=== PATIENT | male | born 1930 | race Caucasian/White ===

== ENCOUNTER 2016-03-10 11:10 | Emergency (ER) | payer OTHER ==
[~2016-03-10] VITALS: Ht 175.3 cm; Wt 91.0 kg
[~2016-03-10 11:10] MED LIST: ALBU1AER INH; AMLO5TAB96 PO; ENAL20TA81 PO; FOLI1TAB PO; LOPE2 PO; LORT5TAB PO; LORTA5 PO; METH2.5 IM; METH750T2 PO; PERC5TAB12 PO; REST30CA PO; SYMB160A INH; TAB-TAB PO
[2016-03-10 11:14] VITALS: BP 149/75; PULSE 75; RESP 16; TEMP 97.9; O2SAT 95
[2016-03-10] MEDS ORDERED: SODIUM CHLORIDE 0.9% FLUSH 5 ML FLUSH IVF PRN (11:30)
[2016-03-10] MEDS ORDERED: methylPREDNISolone SOD SUCC 125 MG/2 ML VIAL IVP ONE (11:30)
--- NOTE | 2016-03-10 11:33 | PD ---
HPI Chief Complaint: Respiratory Distress Time Seen by Provider: 11:20 Travel History International Travel<30 days: No Contact w/Intl Traveler<30days: No Traveled to known affect area: No History of Present Illness HPI This 85-year-old male is complaining of cough and shortness of breath. He has a history of emphysema. He was a smoker in the past but has stopped in 1979. He is on Symbicort. He also has quite severe arthritis and is on [employer] arthritis study. He's been coughing up some thick phlegm in his been wheezing for about 4 days. He is not aware of fever. He is not having chest pain. He has had swelling of his legs off and on for the last couple of months. 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) Oral Surgery: Yes (t and a ) Pacemaker: No Other Surgery: Yes Social History Alcohol Use: Yes (occ) Tobacco Use: No Substance Use: No Allergies-Medications (Allergen,Severity, Reaction): Coded Allergies: Arava (Verified Allergy, Mild, RASH, 03/10/16) Reported Meds & Prescriptions Reported Meds & Active Scripts Active Percocet 5-325 mg (Oxycodone/Acetaminophen) Oxycodone 5/325 Acetaminophen Tab 1 Tab PO Q6H PRN Methocarbamol 750 Mg Tab 750 Mg PO QID [place] 5-325 mg (Hydrocodone-Acetaminophen 5-325 mg) 5 mg/325 mg Tab 1 Tab PO Q6H PRN Lortab 5/500 (Acetaminophen/Hydrocodone Bitart) 5 Mg/500 Mg Tab 0.5-1 Tab PO Q6HPRN NEEDED FOR PAIN Reported Xeljanz (Tofacitinib) 5 Mg Tab 5 Mg PO BID Amlodipine (Amlodipine Besylate) 5 Mg Tab 5 Mg PO DAILY Enalapril (Enalapril Maleate) 20 Mg Tab 20 Mg PO DAILY Symbicort Inh (Budesonide/Formoterol Fumarate) 80-4.5 Mcg/Act Aero 1 Puff INH DAILY PRN Symbicort (Budesonide/Formoterol Fumarate) 160 Mcg/4.5 Mcg Aer 2 Puff INH BID * SHAKE WELL BEFORE USE * Proair Hfa (Albuterol Sulfate) 8.5 Gm Aero 2 Puff INH Q4-6H UNKNOWN DOSE Restoril 30 mg (Temazepam) 30 Mg Cap 1 Cap PO HS Imodium2 Mg 2 Mg Cap 2 Mg PO PRN Rheumatrex (Methotrexate) 2.5 Mg Tab 2.5 Mg IM WEEKLY Folate (Folic Acid) 1 Mg Tab 1 Mg PO DAILY Multivitamin (Multivitamins) 1 Tab Tab 1 Tab PO DAILY Norvasc (Amlodipine Besylate) 5 Mg Tab 5 Mg PO DAILY Vasotec (Enalapril Maleate) 20 Mg Tab 20 Mg PO DAILY Review of Systems General / Constitutional: No: Fever, Chills Eyes: No: Diploplia, Blurred Vision HENT: No: Headaches Cardiovascular: No: Chest Pain or Discomfort Respiratory: Positive: Cough, Shortness of Breath, Wheezing Gastrointestinal: No: Vomiting, Diarrhea Genitourinary: No: Urgency, Frequency Musculoskeletal: No: Myalgias Skin: No Rash Neurologic: No: Weakness Physical Exam Narrative GENERAL: Elderly male in mild respiratory distress. SKIN: Warm and dry. HEAD: Atraumatic. Normocephalic. EYES: Pupils equal and round. No scleral icterus. No injection or drainage. ENT: No nasal bleeding or discharge. Mucous membranes pink and moist. NECK: Trachea midline. No JVD. CARDIOVASCULAR: Regular rate and rhythm. No murmur appreciated. RESPIRATORY: Mild accessory muscle use. Bilateral expiratory wheezes are present GASTROINTESTINAL: Abdomen soft, non-tender, nondistended. Hepatic and splenic margins not palpable. MUSCULOSKELETAL: No obvious deformities. No clubbing. No cyanosis. Bilateral pedal edema NEUROLOGICAL: Awake and alert. No obvious cranial nerve deficits. Motor grossly within normal limits. Normal speech. PSYCHIATRIC: Appropriate mood and affect; insight and judgment normal. Data Data Last Documented VS Vital Signs Date Time Temp Pulse Resp B/P Pulse Ox O2 Delivery O2 Flow Rate FiO2 03/10/16 13:16 94 18 140/57 93 Room Air 03/10/16 11:14 97.9 Orders Complete Blood Count With Diff (03/10/16 11:27) Comprehensive Metabolic Panel (03/10/16 11:27) B-Type Natriuretic Peptide (03/10/16 11:27) Troponin I (03/10/16 11:27) Urinalysis - C+S If Indicated (03/10/16 11:27) Blood Culture (03/10/16 11:27) Iv Access Insert/Monitor (03/10/16 11:27) Electrocardiogram (03/10/16 11:27) Ecg Monitoring (03/10/16 11:27) Oximetry (03/10/16 11:27) Oxygen Administration (03/10/16 11:27) Chest, Single Ap (03/10/16 11:27) Sodium Chloride 0.9% Flush (Ns Flush) (03/10/16 11:30) Methylprednisolone So Succ Inj (Solumedr (03/10/16 11:30) Albuterol-Ipratropium Neb (Duoneb Neb) (03/10/16 11:30) Lactic Acid Sepsis Protocol (03/10/16 11:27) Labs Laboratory Tests Test 03/10/16 03/10/16 11:50 11:55 White Blood Count 6.5 TH/MM3 Red Blood Count 4.39 MIL/MM3 Hemoglobin 13.0 GM/DL Hematocrit 40.3 % Mean Corpuscular Volume 91.9 FL Mean Corpuscular Hemoglobin 29.6 PG Mean Corpuscular Hemoglobin 32.2 % Concent Red Cell Distribution Width 14.1 % Platelet Count 210 TH/MM3 Mean Platelet Volume 7.9 FL Neutrophils (%) (Auto) 57.0 % Lymphocytes (%) (Auto) 21.0 % Monocytes (%) (Auto) 19.1 % Eosinophils (%) (Auto) 2.6 % Basophils (%) (Auto) 0.3 % Neutrophils # (Auto) 3.7 TH/MM3 Lymphocytes # (Auto) 1.4 TH/MM3 Monocytes # (Auto) 1.2 TH/MM3 Eosinophils # (Auto) 0.2 TH/MM3 Basophils # (Auto) 0.0 TH/MM3 CBC Comment DIFF FINAL Differential Comment Sodium Level 142 MEQ/L Potassium Level 4.0 MEQ/L Chloride Level 102 MEQ/L Carbon Dioxide Level 33.6 MEQ/L Anion Gap 6 MEQ/L Blood Urea Nitrogen 13 MG/DL Creatinine 1.10 MG/DL Estimat Glomerular Filtration 64 ML/MIN Rate Random Glucose 74 MG/DL Calcium Level 9.0 MG/DL Total Bilirubin 0.3 MG/DL Aspartate Amino Transf 16 U/L (AST/SGOT) Alanine Aminotransferase 18 U/L (ALT/SGPT) Alkaline Phosphatase 70 U/L Troponin I LESS THAN 0.02 NG/ML B-Type Natriuretic Peptide 33 PG/ML Total Protein 7.6 GM/DL Albumin 3.4 GM/DL Lactic Acid Level 1.2 mmol/L [facility] Medical Decision Making Medical Screen Exam Complete: Yes Emergency Medical Condition: Yes Medical Record Reviewed: Yes Differential Diagnosis Differential includes COPD exacerbation, pneumonia, CHF Narrative Course Chest x-ray is read as negative. Patient was given Solu-Medrol and 3 nebulizer treatments with improvement. He feels better after these treatments. Repeat exam does show some residual rhonchi and occasional wheeze. He'll be released with prescription for prednisone and amoxicillin Diagnosis Primary Impression: COPD exacerbation Scripts Prednisone (48) 10 mg tab Dose Pack 10 Mg [id number] Mg PO DIRECTED #1 DSPK Ref 0 Prov:Angel Weldon MD 03/10/16 Amoxicillin 500 Mg [id number] Mg PO TID #30 TAB Ref 0 Prov:Angel Weldon MD 03/10/16 Disposition: 01 DISCHARGE HOME Condition: Stable Angel Weldon MD Mar 10, 2016 11:33
[2016-03-10 11:37] VITALS: RESP 18; O2SAT 93
[2016-03-10] MEDS ORDERED: TOFA5TAB PO (11:44)
[2016-03-10] MEDS ORDERED: AMLO5TAB2 PO (11:44)
[2016-03-10] MEDS ORDERED: ENAL20TA PO (11:44)
[2016-03-10] MEDS ORDERED: SYMB80AE INH (11:44)
[2016-03-10] MEDS: RESP: ALBUTEROL 2.5 MG/IPRATROPIUM 0.5 MG NEB (SCH) INH ×2 (11:50→11:51)
[2016-03-10 12:04] VITALS: BP 156/67; PULSE 70; RESP 16; O2SAT 95
[2016-03-10 12:14] LABS: AUTOMATED NEUTROPHIL # 3.7 TH/MM3 (1.8-7.7); BASOPHIL % 0.3 % (0.0-2.0); EOSINOPHIL # 0.2 TH/MM3 (0-0.4); EOSINOPHIL % 2.6 % (0.0-4.0); HEMATOCRIT 40.3 % (39.0-51.0); HEMO FLAGS DIFF FINAL; LYMPHOCYTE # 1.4 TH/MM3 (1.0-4.8); MEAN CELL VOLUME 91.9 FL (80.0-100.0); MEAN CORPUSCULAR HEMOGLOBIN 29.6 PG (27.0-34.0); MEAN CORPUSCULAR HGB CONC 32.2 % (32.0-36.0); MONO % 19.1 % (0.0-8.0); PLATELET COUNT 210 TH/MM3 (150-450); RED BLOOD COUNT 4.39 MIL/MM3 (4.50-5.90); RED CELL DISTRIBUTION WIDTH 14.1 % (11.6-17.2); WHITE BLOOD COUNT 6.5 TH/MM3 (4.0-11.0)
[2016-03-10 12:21] LABS: CHLORIDE 102 MEQ/L (98-107); SODIUM (NA) 142 MEQ/L (136-145)
[2016-03-10 12:25] LABS: ANION GAP 6 MEQ/L (5-15); BICARBONATE 33.6 MEQ/L (21.0-32.0); BLOOD UREA NITROGEN 13 MG/DL (7-18)
[2016-03-10 12:28] LABS: AST (GOT) 16 U/L (15-37); GLOMERULAR FILTRATION RATE 64 ML/MIN (>89)
[2016-03-10 12:30] LABS: TOTAL BILIRUBIN ADULT 0.3 MG/DL (0.2-1.0)
[2016-03-10 12:31] LABS: ALKALINE PHOSPHATASE 70 U/L (45-117)
--- NOTE | 2016-03-10 12:34 | RADHPO ---
EXAM DATE/TIME: 03/10/2016 11:45 [facility] COMPARISON: No previous studies available for comparison. INDICATIONS : Short of breath and cough MEDICAL HISTORY : Chronic obstructive pulmonary disease. Asthma SURGICAL HISTORY : None. ENCOUNTER: Initial ACUITY: 4 - 6 days PAIN SCORE: 0/10 LOCATION: Bilateral chest FINDINGS: A single view of the chest demonstrates minimal basilar atelectasis. No effusion. No pneumothorax. Ri ght sided shunt tubing present. Postoperative left shoulder joint replacement. CONCLUSION: 1. Minimal basilar atelectasis. No effusion or pneumothorax. Lam Astorga MD on March 10, 2016 at 12:32 Board Certified Radiologist. This report was verified electronically.
[2016-03-10 12:37] LABS: ALT (GPT) 18 U/L (12-78)
[2016-03-10 13:16] VITALS: BP 140/57; PULSE 94; RESP 18; O2SAT 93
[2016-03-10] MEDS ORDERED: AMOX500T PO (13:35)
[2016-03-10] MEDS ORDERED: PRED10PA2 PO (13:35)
[2016-03-10] MEDS ORDERED: PRED20 PO (13:36)
--- NOTE | 2016-03-10 22:22 | EKG ---
Date Performed: 03/10/2016 Time Performed: 11:31:12 PTAGE: 85 years EKG: Sinus rhythm Nonspecific ST and T wave abnormalities Borderline ECG PREVIOUS TRACING : 11/23/2009 08.33 Since previous tracing, no significant change noted DOCTOR: Reed Carpenter Interpretating Date/Time 03/10/2016 22:20:49
== END 2016-03-10 14:00 | disposition home or self-care (01) ==
LOC: PHED 11:10
DX: J44.1 Chronic obstructive pulmonary disease with (acute) exacerbation (principal); R05 Cough; I10 Essential (primary) hypertension; R94.31 Abnormal electrocardiogram [ECG] [EKG]; J43.9 Emphysema, unspecified; M19.90 Unspecified osteoarthritis, unspecified site
CPT/HCPCS: 71010; 80053; 83605; 83880; 84484; 85025; 87040; 93005; 94640; 94664; 96374; 99285; J2930

== ENCOUNTER 2016-09-11 19:34 | Emergency (ER) | payer OTHER ==
[~2016-09-11] VITALS: Ht 170.2 cm; Wt 88.8 kg
[~2016-09-11 19:34] MED LIST changes: +AMLO5TAB2 PO; +AMOX500T PO; +ENAL20TA PO; +PRED20 PO; +SYMB80AE INH; +TOFA5TAB PO
[2016-09-11 19:49] VITALS: BP 152/91; PULSE 97; RESP 16; TEMP 98.5; O2SAT 93
[2016-09-11] MEDS ORDERED: METH2.5T PO (20:12)
[2016-09-11] MEDS ORDERED: HYDR-3516 PO (20:12)
[2016-09-11] MEDS ORDERED: MULTTAB67 PO (20:12)
[2016-09-11] MEDS ORDERED: FOLI400T PO (20:13)
--- NOTE | 2016-09-11 20:27 | PD ---
HPI Chief Complaint: Fall Time Seen by Provider: 20:14 Travel History International Travel<30 days: No Contact w/Intl Traveler<30days: No Traveled to known affect area: No History of Present Illness HPI 86-year-old male complains of laceration the back of the head. Patient tripped and fell this evening. Patient denies loss of consciousness. Patient states that he had burning pain in the back of the head from the laceration. Patient denies any visual change. Patient denies any neck pain. Patient denies any chest pain or shortness of breath. Patient denies abdominal pain. Patient denies any focal weakness or numbness of extremity. Patient denies any extremity injury. Patient's up-to-date with TD booster. Patient status post excision surgery for skin cancer to the scalp this morning. Patient states he has some burning pain around the incision area. Patient was on methotrexate until a week ago. Patient was on clindamycin last week and now taking doxycycline starting this morning after surgery. 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) Oral Surgery: Yes (t and a ) Pacemaker: No Other Surgery: Yes Social History Alcohol Use: Yes (Occasionally) Tobacco Use: No (quit 1979) Substance Use: No Allergies-Medications (Allergen,Severity, Reaction): Coded Allergies: Arava (Verified Allergy, Mild, RASH, 09/11/16) Reported Meds & Prescriptions Reported Meds & Active Scripts Active Reported Folic Acid 400 Mcg Tab 1 Tab PO DAILY Multiple Vitamin 1 Tab 1 Tab PO DAILY Methotrexate 2.5 Mg Tab 2.5 Mg PO Q7D Hydrocodone-Acetaminophen 5-325 mg Tab 1 Tab PO Q6H PRN Xeljanz (Tofacitinib) 5 Mg Tab 5 Mg PO BID Amlodipine (Amlodipine Besylate) 5 Mg Tab 5 Mg PO DAILY Enalapril (Enalapril Maleate) 20 Mg Tab 20 Mg PO DAILY Symbicort Inh (Budesonide/Formoterol Fumarate) 80-4.5 Mcg/Act Aero 1 Puff INH DAILY PRN Review of Systems General / Constitutional: No: Fever Eyes: No: Visual changes HENT: No: Headaches Cardiovascular: No: Chest Pain or Discomfort Respiratory: No: Shortness of Breath Gastrointestinal: No: Abdominal Pain Genitourinary: No: Dysuria Musculoskeletal: No: Pain Skin: No Rash Neurologic: No: Weakness Psychiatric: No: Depression Endocrine: No: Polydipsia Hematologic/Lymphatic: No: Easy Bruising Physical Exam Narrative GENERAL: Well-nourished, well-developed patient. SKIN: Focused skin assessment warm/dry. Patient has jaundice of the face head and neck. HEAD: Normocephalic. EYES: Bilateral scleral icterus. No injection or drainage. NECK: Supple, trachea midline. No JVD or lymphadenopathy. CARDIOVASCULAR: Regular rate and rhythm without murmurs, gallops, or rubs. RESPIRATORY: Breath sounds equal bilaterally. No accessory muscle use. GASTROINTESTINAL: Abdomen soft, non-tender, nondistended. MUSCULOSKELETAL: No cyanosis, or edema. BACK: Nontender without obvious deformity. No CVA tenderness. Neurologic exam: Patient's awake and alert oriented 3. No obvious focal neurological deficit. Data Data Last Documented VS Vital Signs Date Time Temp Pulse Resp B/P Pulse Ox O2 Delivery O2 Flow Rate FiO2 09/11/16 20:30 94 Room Air 09/11/16 19:49 98.5 97 16 152/91 Orders Complete Blood Count With Diff (09/11/16 20:22) Comprehensive Metabolic Panel (09/11/16 20:22) Prothrombin Time / Inr (Pt) (09/11/16 20:22) Act Partial Throm Time (Ptt) (09/11/16 20:22) Ct Brain W/O Iv Contrast(Rout) (09/11/16 20:22) Iv Access Insert/Monitor (09/11/16 20:22) Ecg Monitoring (09/11/16 20:22) Oximetry (09/11/16 20:22) Lidocai-Epi 1%-1:100,000 Inj (Xylocaine- (09/11/16 20:30) Labs Laboratory Tests Test 09/11/16 20:30 White Blood Count 7.8 TH/MM3 Red Blood Count 4.33 MIL/MM3 Hemoglobin 13.0 GM/DL Hematocrit 40.0 % Mean Corpuscular Volume 92.4 FL Mean Corpuscular Hemoglobin 30.1 PG Mean Corpuscular Hemoglobin 32.6 % Concent Red Cell Distribution Width 15.7 % Platelet Count 232 TH/MM3 Mean Platelet Volume 7.4 FL Neutrophils (%) (Auto) 55.1 % Lymphocytes (%) (Auto) 25.9 % Monocytes (%) (Auto) 15.7 % Eosinophils (%) (Auto) 2.9 % Basophils (%) (Auto) 0.4 % Neutrophils # (Auto) 4.4 TH/MM3 Lymphocytes # (Auto) 2.0 TH/MM3 Monocytes # (Auto) 1.2 TH/MM3 Eosinophils # (Auto) 0.2 TH/MM3 Basophils # (Auto) 0.0 TH/MM3 CBC Comment DIFF FINAL Differential Comment Prothrombin Time 11.2 SEC Prothromb Time International 1.0 RATIO Ratio Activated Partial 28.0 SEC Thromboplast Time Sodium Level 144 MEQ/L Potassium Level 4.5 MEQ/L Chloride Level 106 MEQ/L Carbon Dioxide Level 33.2 MEQ/L Anion Gap 5 MEQ/L Blood Urea Nitrogen 26 MG/DL Creatinine 1.20 MG/DL Estimat Glomerular Filtration 58 ML/MIN Rate Random Glucose 113 MG/DL Calcium Level 9.5 MG/DL Total Bilirubin 0.3 MG/DL Aspartate Amino Transf 21 U/L (AST/SGOT) Alanine Aminotransferase 20 U/L (ALT/SGPT) Alkaline Phosphatase 73 U/L Total Protein 7.4 GM/DL Albumin 3.3 GM/DL MDM Medical Decision Making Medical Screen Exam Complete: Yes Emergency Medical Condition: Yes Interpretation(s) Last Impressions Head CT 09/11/162021 Signed Impressions: Service Date/Time: Sunday, September 11, 2016 20:49 - CONCLUSION: Mildly prominent ventricles with shunt in place. I have no prior studies for comparison. There is no skull fracture. Francisco J Hoskins MD FACR 21:28 PM. CBC within normal limit. CMP within normal limit. Bicarbonate 33.2. BUN 26. Differential Diagnosis Differential diagnosis including scalp laceration, skull fracture, intracranial hemorrhage. Narrative Course 86-year-old male with head injury. Examination also shows patient has jaundice of the skin on the face and head and neck. Patient status post scalp excision surgery for skin cancer. Procedures Procedure Narrative LACERATION LOCATION: Scalp LENGTH: 3 cm NUMBER OF STITCHES/STU: 3 REPAIR: The area of the laceration was prepped with Betadine and sterilely draped. The laceration was infiltrated with 1% lidocaine with epinephrine. The wound was copiously irrigated and explored without evidence of foreign body , tendon injury or neurovascular injury. The wound was closed using stu. This was a single layer repair. A sterile dressing was applied. The patient was advised to keep the dressing clean and dry. Patient tolerated the procedure well. Diagnosis Primary Impression: Scalp laceration Qualified Code: S01.01XA - Scalp laceration, initial encounter Additional Impression: Closed head injury Qualified Code: S09.90XA - Closed head injury, initial encounter Patient Instructions: General Instructions Additional Instructions: Wound care daily. Head trauma instructions given. Follow-up with personal physician or return in 7 days for staple removal. Med/Other Pt SpecificInfo: No Change to Meds Disposition: 01 DISCHARGE HOME Condition: Stable Steven Perez MD Sep 11, 2016 20:27
[2016-09-11 20:30] VITALS: BP 170/78; PULSE 88; RESP 18; O2SAT 94
[2016-09-11] MEDS ORDERED: LIDOCAINE 1%/EPINEPHrine 1:100,000 SOLN 20 ML VIAL INFIL ONE (20:30)
[2016-09-11 20:37] LABS: AUTOMATED NEUTROPHIL # 4.4 TH/MM3 (1.8-7.7); BASOPHIL % 0.4 % (0.0-2.0); EOSINOPHIL # 0.2 TH/MM3 (0-0.4); EOSINOPHIL % 2.9 % (0.0-4.0); HEMO FLAGS DIFF FINAL; LYMPH % 25.9 % (9.0-44.0); MEAN CELL VOLUME 92.4 FL (80.0-100.0); MEAN CORPUSCULAR HEMOGLOBIN 30.1 PG (27.0-34.0); MEAN CORPUSCULAR HGB CONC 32.6 % (32.0-36.0); MONO % 15.7 % (0.0-8.0); NEUT % 55.1 % (16.0-70.0); PLATELET COUNT 232 TH/MM3 (150-450); RED BLOOD COUNT 4.33 MIL/MM3 (4.50-5.90); RED CELL DISTRIBUTION WIDTH 15.7 % (11.6-17.2); WHITE BLOOD COUNT 7.8 TH/MM3 (4.0-11.0)
[2016-09-11 20:45] LABS: CHLORIDE 106 MEQ/L (98-107); POTASSIUM 4.5 MEQ/L (3.5-5.1); SODIUM (NA) 144 MEQ/L (136-145)
[2016-09-11 20:49] LABS: ANION GAP 5 MEQ/L (5-15); BICARBONATE 33.2 MEQ/L (21.0-32.0); BLOOD UREA NITROGEN 26 MG/DL (7-18)
[2016-09-11 20:52] LABS: ALT (GPT) 20 U/L (12-78); AST (GOT) 21 U/L (15-37); GLOMERULAR FILTRATION RATE 58 ML/MIN (>89)
[2016-09-11 20:54] LABS: TOTAL BILIRUBIN ADULT 0.3 MG/DL (0.2-1.0)
[2016-09-11 20:55] LABS: ALKALINE PHOSPHATASE 73 U/L (45-117)
[2016-09-11 21:00] VITALS: BP 151/77; PULSE 86; RESP 18; O2SAT 94
--- NOTE | 2016-09-11 21:17 | RADRPT ---
EXAM DATE/TIME: 09/11/2016 20:49 [facility] COMPARISON: No previous studies available for comparison. INDICATIONS : Trauma. Fall. Occipital laceration. RADIATION DOSE: 61.50 CTDIvol (mGy) MEDICAL HISTORY : Hypertension. Emphysema. hydrocephalus. SURGICAL HISTORY : Cranial shunt. ENCOUNTER: Initial ACUITY: 1 day PAIN SCALE: 9/10 LOCATION: Right occipital TECHNIQUE: Multiple contiguous axial images were obtained of the head. Using automated exposure control and adj ustment of the mA and/or kV according to patient size, radiation dose was kept as low as reasonably a chievable to obtain optimal diagnostic quality images. DICOM format image data is available electro nically for review and comparison. FINDINGS: CEREBRUM: The ventricles are mildly prominent with shunt in place. No evidence of midline shift, mass lesion, hemorrhage or acute infarction. No extra-axial fluid collections are seen. POSTERIOR FOSSA: The cerebellum and brainstem are intact. The 4th ventricle is midline. The cerebellopontine angle i s unremarkable. EXTRACRANIAL: The visualized portion of the orbits is intact. SKULL: The calvaria is intact. No evidence of skull fracture. CONCLUSION: Mildly prominent ventricles with shunt in place. I have no prior studies for comparison. There is n o skull fracture. Francisco J Hoskins MD FACR on September 11, 2016 at 21:15 Board Certified Radiologist. This report was verified electronically.
[2016-09-11 21:39] LABS: PROTHROMBIN TIME - PATIENT 11.2 SEC (9.8-11.6)
[2016-09-11 22:05] VITALS: BP 140/82
== END 2016-09-11 22:05 | disposition home or self-care (01) ==
LOC: PHED 19:34
DX: S01.01XA Laceration without foreign body of scalp, initial encounter (principal); S09.90XA Unspecified injury of head, initial encounter; R17 Unspecified jaundice; I10 Essential (primary) hypertension; Z98.890 Other specified postprocedural states; Z87.39 Personal history of other diseases of the musculoskeletal system and connective tissue; Z87.09 Personal history of other diseases of the respiratory system; W01.0XXA Fall on same level from slipping, tripping and stumbling without subsequent striking against object, initial encounter
CPT/HCPCS: 12002; 70450; 80053; 85025; 85610; 85730

== ENCOUNTER → 2016-10-06 | Day surgery (SDC) | payer OTHER ==
[~2016-10-06] MED LIST changes: -ALBU1AER INH; -AMLO5TAB96 PO; -AMOX500T PO; -ENAL20TA81 PO; -FOLI1TAB PO; +FOLI400T PO; +HYDR-3516 PO; +LACTATED RINGER'S 1000 ML INJ 1,000 ML ONE; -LOPE2 PO; -LORT5TAB PO; -LORTA5 PO; -METH2.5 IM; +METH2.5T PO; -METH750T2 PO; +MULTTAB67 PO; -PERC5TAB12 PO; -PRED20 PO; -REST30CA PO; -SYMB160A INH; -TAB-TAB PO; +ceFAZolin 2 GM PREMIX 50 ML ONE
== END | disposition home or self-care (01) ==
LOC: ESDC 06:07
PROVIDERS: ATTEND Orthopaedic Surgery Sports Medicine
DX: M19.011 Primary osteoarthritis, right shoulder (principal)
CPT/HCPCS: J0690; J7120

== ENCOUNTER → 2016-11-30 | Outpatient (CLI) | payer OTHER ==
[~2016-11-30] MED LIST changes: -LACTATED RINGER'S 1000 ML INJ 1,000 ML ONE; -ceFAZolin 2 GM PREMIX 50 ML ONE
[2016-11-30 14:23] LABS: BLOOD GAS BASE EXCESS 0.3 mmol/L (-2-2); BLOOD GAS CARBOXYHEMOGLOBIN 1.7 % (0-4); BLOOD GAS HCO3 24 mmol/L (22-26); BLOOD GAS O2 HGB SATURATION 92 % (90-100); BLOOD GAS OXYGEN CONTENT 16.4 Vol % (12.0-20.0); BLOOD GAS PCO2 37 mmHg (38-42); BLOOD GAS PO2 75 mmHg (61-120); BLOOD GAS TOTAL HGB 12.6 G/DL (12.0-16.0); CRITICAL VALUE NO; DRAW SITE RT RADIAL; FIO2 21 %; NUMBER OF ARTERIAL PUNCTURES 1; STAT NO; TEMP CORR TO 98.6; ULNAR PULSE PRESENT
--- NOTE | 2016-12-01 09:30 | RSPPFT ---
DATE OF PROCEDURE: 11/30/16 COMMENTS: Spirometry with FVC of 2.6 at 85% of predicted, FEV1 of 1.2 at 52%, FEV1/FVC ratio is decreased. Flow is decreased at FEF 25, FEF 50, FEF 75 and FEF 25-75. There is a mild response after acutely inhaled bronchodilator treatment. Lung volumes show residual volume is normal. TLC is normal. Diffusion capacity is decreased. Flow volume loop indicates an obstructive pattern. Room air arterial blood gases show pH of 7.43, PCO2 of 37, PO2 of 75, BiCarb of 24 and O2 Saturation at 92%. 6-minute walk test shows no de-saturation. IMPRESSION: 1. Moderately severe obstructive lung disease. 2. Mild response to bronchodilator treatment. 3. Lung volumes are normal. 4. Diffusion capacity is decreased. 5. Blood gases show normal oxygenation. 6. 6-minute show no de-saturation.
== END ==
LOC: HRSP 12:48
PROVIDERS: ATTEND Specialist
DX: J44.9 Chronic obstructive pulmonary disease, unspecified (principal)
CPT/HCPCS: 36600; 82805; 94060; 94620; 94726; 94729

== ENCOUNTER 2017-01-08 15:21 | Emergency (ER) | payer OTHER ==
[~2017-01-08] VITALS: Ht 168.9 cm; Wt 90.6 kg
[2017-01-08 15:50] VITALS: BP 137/90; PULSE 96; RESP 16; TEMP 98; O2SAT 92
[2017-01-08 16:14] VITALS: RESP 16; O2SAT 97
[2017-01-08] MEDS ORDERED: ONDANSETRON HCL 4 MG/2 ML VIAL IVP ONE (16:15)
[2017-01-08] MEDS ORDERED: SODIUM CHLORIDE 0.9% FLUSH 10 ML FLUSH IVF PRN (16:15)
[2017-01-08] MEDS ORDERED: DICYCLOMINE HCL 10 MG CAP PO ONE (16:15)
[2017-01-08] MEDS ORDERED: MORPHINE SULFATE 8 MG/ML INJ IV PUSH ONE (16:15)
[2017-01-08] MEDS ORDERED: PANTOPRAZOLE SODIUM 40 MG VIAL IVP ONE (16:15)
[2017-01-08 16:18] VITALS: BP 150/63; PULSE 91; RESP 16; O2SAT 97
--- NOTE | 2017-01-08 16:18 | PD ---
HPI Chief Complaint: GI Complaint Time Seen by Provider: 16:02 Travel History International Travel<30 days: No Contact w/Intl Traveler<30days: No Traveled to known affect area: No History of Present Illness HPI The patient is a 86-year-old male who presents emergency department for lower abdominal pain and bright red blood to dark red blood in stool. The patient states his symptoms developed yesterday with lower abdominal pain that is described as sharp and cramping. The patient then noticed she had dark red blood in his stools as well as when he would . The patient states she has had multiple episodes of loose to watery diarrhea associated with the blood in the stool. He denies any recent international travel or history of colitis/ diverticulitis. The patient states his last colonoscopy was 3 years ago, but cannot recall the name of the airveyor operator. He denies taking any anti- anticoagulants. Symptoms are moderate, there are no current alleviating or exacerbating factors. He denies any nausea, vomiting, or upper abdominal pain. He denies any hematuria. Patient does have a history of rheumatoid arthritis for which she takes methotrexate and another rheumatoid arthritis medication. He denies taking any nonsteroidals on a daily basis. The patient's primary physician is Dr. Ahn. [facility] Past Medical History Arthritis: Yes (RA) Cancer: No Cardiovascular Problems: No COPD: Yes (Emphysema) Diabetes: No Diminished Hearing: No Glaucoma: No Hepatitis: No Hiatal Hernia: No Hypertension: Yes Medical other: Yes (NEEDS SURGERY ON LEFT SHOULDER. ,CHRONIC LOW BACK PAIN) Respiratory: Yes Thyroid Disease: No Tetanus Vaccination: < 5 Years Past Surgical History Cardiac Surgery: No Endocrine Surgery: No Genitourinary Surgery: Yes (penile implant) Neurologic Surgery: Yes (cranial shunt due hydrocephalus) Oral Surgery: Yes (t and a ) Pacemaker: No Other Surgery: Yes Social History Alcohol Use: Yes (Occasionally) Tobacco Use: No (quit 1979) Substance Use: No Allergies-Medications (Allergen,Severity, Reaction): Coded Allergies: leflunomide (Unverified Allergy, Mild, RASH, 01/08/17) Reported Meds & Prescriptions Reported Meds & Active Scripts Active Reported Folic Acid 400 Mcg Tab 1 Tab PO DAILY Multiple Vitamin 1 Tab 1 Tab PO DAILY Methotrexate 2.5 Mg Tab 2.5 Mg PO Q7D Hydrocodone-Acetaminophen 5-325 mg Tab 1 Tab PO Q6H PRN Xeljanz (Tofacitinib) 5 Mg Tab 5 Mg PO BID Amlodipine (Amlodipine Besylate) 5 Mg Tab 5 Mg PO DAILY Enalapril (Enalapril Maleate) 20 Mg Tab 20 Mg PO DAILY Symbicort Inh (Budesonide/Formoterol Fumarate) 80-4.5 Mcg/Act Aero 1 Puff INH DAILY PRN Review of Systems Except as stated in HPI: all other systems reviewed are Neg General / Constitutional: No: Fever Cardiovascular: No: Chest Pain or Discomfort Respiratory: No: Shortness of Breath Gastrointestinal: Positive: Abdominal Pain, Hematochezia, Changes in Bowel Habits, No: Nausea, Vomiting, Diarrhea Genitourinary: Positive: Pelvic Pain, No: Dysuria, Hematuria Musculoskeletal: Positive: Arthralgias (history of rheumatoid arthritis) Neurologic: No: Weakness, Dizziness Physical Exam Narrative GENERAL: Awake, alert, pleasant 86-year-old male who appears his stated age and is in no acute respiratory distress. SKIN: Focused skin assessment warm/dry. HEAD: Atraumatic. Normocephalic. EYES: Pupils equal and round. No scleral icterus. No injection or drainage. ENT: No nasal bleeding or discharge. Upper dentures noted. NECK: Trachea midline. No JVD. CARDIOVASCULAR: Regular rate and rhythm. No murmur appreciated. Heart rate in the 80s. RESPIRATORY: No accessory muscle use. Clear to auscultation. Breath sounds equal bilaterally. GASTROINTESTINAL: Abdomen soft, mild bilateral lower abdominal tenderness. No guarding or rigidity. Rectal: Some dried red blood around the anal area. Digital exam reveals bright red blood that is grossly guaiac positive. MUSCULOSKELETAL: No obvious deformities. No clubbing. No cyanosis. No edema. NEUROLOGICAL: Awake and alert. No obvious cranial nerve deficits. Motor grossly within normal limits. Normal speech. PSYCHIATRIC: Appropriate mood and affect; insight and judgment normal. Data Data Last Documented VS Vital Signs Date Time Temp Pulse Resp B/P (MAP) Pulse Ox O2 Delivery O2 Flow Rate FiO2 01/08/17 16:18 91 16 150/63 (92) 97 Room Air 01/08/17 15:50 98.0 Orders Orders Urinalysis - C+S If Indicated (01/08/17 15:44) Complete Blood Count With Diff (01/08/17 16:10) Comprehensive Metabolic Panel (01/08/17 16:10) Lipase (01/08/17 16:10) Prothrombin Time / Inr (Pt) (01/08/17 16:10) Type And Screen (01/08/17 16:10) Ecg Monitoring (01/08/17 16:10) Iv Access Insert/Monitor (01/08/17 16:10) Oximetry (01/08/17 16:10) Ondansetron Inj (Zofran Inj) (01/08/17 16:15) Pantoprazole Inj (Protonix Inj) (01/08/17 16:15) Sodium Chlor 0.9% 1000 Ml Inj (Ns 1000 M (01/08/17 16:10) Sodium Chloride 0.9% Flush (Ns Flush) (01/08/17 16:15) Lactic Acid (01/08/17 16:10) Ct Abd/Pel W/O Iv Contrast (01/08/17 ) Dicyclomine (Bentyl) (01/08/17 16:15) Morphine Inj (Morphine Inj) (01/08/17 16:15) Ciprofloxacin (Cipro) (01/08/17 18:00) Metronidazole 500 Mg Inj (Flagyl 500 Mg (01/08/17 18:00) Labs Laboratory Tests Test 01/08/17 16:20 White Blood Count 11.1 TH/MM3 Red Blood Count 4.20 MIL/MM3 Hemoglobin 12.1 GM/DL Hematocrit 37.4 % Mean Corpuscular Volume 89.1 FL Mean Corpuscular Hemoglobin 28.9 PG Mean Corpuscular Hemoglobin Concent 32.4 % Red Cell Distribution Width 17.0 % Platelet Count 250 TH/MM3 Mean Platelet Volume 8.0 FL Neutrophils (%) (Auto) 70.9 % Lymphocytes (%) (Auto) 14.1 % Monocytes (%) (Auto) 12.5 % Eosinophils (%) (Auto) 2.3 % Basophils (%) (Auto) 0.2 % Neutrophils # (Auto) 7.8 TH/MM3 Lymphocytes # (Auto) 1.6 TH/MM3 Monocytes # (Auto) 1.4 TH/MM3 Eosinophils # (Auto) 0.3 TH/MM3 Basophils # (Auto) 0.0 TH/MM3 CBC Comment DIFF FINAL Differential Comment Prothrombin Time 11.4 SEC Prothromb Time International Ratio 1.0 RATIO Urine Color YELLOW Urine Turbidity CLEAR Urine pH 6.0 Urine Specific [place] 1.021 Urine Protein TRACE mg/dL Urine Glucose (UA) NEG mg/dL Urine Ketones NEG mg/dL Urine Occult Blood NEG Urine Nitrite NEG Urine Bilirubin NEG Urine Leukocyte Esterase NEG Urine RBC 0-3 /hpf Urine WBC 6-8 /hpf Urine Squamous Epithelial Cells 0-5 /hpf Microscopic Urinalysis Comment CULT NOT INDICATED Blood Urea Nitrogen 26 MG/DL Creatinine 1.10 MG/DL Random Glucose 96 MG/DL Total Protein 7.6 GM/DL Albumin 3.2 GM/DL Calcium Level 9.1 MG/DL Alkaline Phosphatase 69 U/L Aspartate Amino Transf (AST/SGOT) 29 U/L Alanine Aminotransferase (ALT/SGPT) 34 U/L Total Bilirubin 0.4 MG/DL Sodium Level 139 MEQ/L Potassium Level 4.2 MEQ/L Chloride Level 105 MEQ/L Carbon Dioxide Level 30.1 MEQ/L Anion Gap 4 MEQ/L Estimat Glomerular Filtration Rate 64 ML/MIN Lactic Acid Level 0.9 mmol/L Lipase 83 U/L [facility] Medical Decision Making Medical Screen Exam Complete: Yes Emergency Medical Condition: Yes Medical Record Reviewed: Yes Interpretation(s) Last Impressions Abdomen/Pelvis CT 01/08/17 0000 Signed Impressions: Service Date/Time: Sunday, January 08, 2017 16:51 - CONCLUSION: 1. Mild bowel wall thickening mid sigmoid colon within the pelvis, nonspecific 2. Marked vascular calcifications 3. Left renal cyst 4. 1.4 cm probable complex right renal cyst. Followup by ultrasound or CT 6 months is suggested. Francisco J Hoskins MD FACR Laboratory Tests Test 01/08/17 16:20 White Blood Count 11.1 TH/MM3 Red Blood Count 4.20 MIL/MM3 Hemoglobin 12.1 GM/DL Hematocrit 37.4 % Mean Corpuscular Volume 89.1 FL Mean Corpuscular Hemoglobin 28.9 PG Mean Corpuscular Hemoglobin Concent 32.4 % Red Cell Distribution Width 17.0 % Platelet Count 250 TH/MM3 Mean Platelet Volume 8.0 FL Neutrophils (%) (Auto) 70.9 % Lymphocytes (%) (Auto) 14.1 % Monocytes (%) (Auto) 12.5 % Eosinophils (%) (Auto) 2.3 % Basophils (%) (Auto) 0.2 % Neutrophils # (Auto) 7.8 TH/MM3 Lymphocytes # (Auto) 1.6 TH/MM3 Monocytes # (Auto) 1.4 TH/MM3 Eosinophils # (Auto) 0.3 TH/MM3 Basophils # (Auto) 0.0 TH/MM3 CBC Comment DIFF FINAL Differential Comment Prothrombin Time 11.4 SEC Prothromb Time International Ratio 1.0 RATIO Urine Color YELLOW Urine Turbidity CLEAR Urine pH 6.0 Urine Specific [place] 1.021 Urine Protein TRACE mg/dL Urine Glucose (UA) NEG mg/dL Urine Ketones NEG mg/dL Urine Occult Blood NEG Urine Nitrite NEG Urine Bilirubin NEG Urine Leukocyte Esterase NEG Urine RBC 0-3 /hpf Urine WBC 6-8 /hpf Urine Squamous Epithelial Cells 0-5 /hpf Microscopic Urinalysis Comment CULT NOT INDICATED Blood Urea Nitrogen 26 MG/DL Creatinine 1.10 MG/DL Random Glucose 96 MG/DL Total Protein 7.6 GM/DL Albumin 3.2 GM/DL Calcium Level 9.1 MG/DL Alkaline Phosphatase 69 U/L Aspartate Amino Transf (AST/SGOT) 29 U/L Alanine Aminotransferase (ALT/SGPT) 34 U/L Total Bilirubin 0.4 MG/DL Sodium Level 139 MEQ/L Potassium Level 4.2 MEQ/L Chloride Level 105 MEQ/L Carbon Dioxide Level 30.1 MEQ/L Anion Gap 4 MEQ/L Estimat Glomerular Filtration Rate 64 ML/MIN Lactic Acid Level 0.9 mmol/L Lipase 83 U/L Differential Diagnosis Differential diagnosis includes mesenteric ischemia, colitis, diverticulosis, internal hemorrhoids, diverticulitis, enteritis, GI bleed, lower GI bleed, AV malformation, coagulopathy. Narrative Course IV was established, labs are drawn and sent, and the patient was placed on cardiac telemetry monitoring and continuous pulse oximetry monitoring. The patient was administered Protonix, morphine, Bentyl, Zofran, and IV fluids. Type and screen was sent to lab. Noncontrast CT of the abdomen and pelvis was ordered. The patient's white count is low 0.1. Hemoglobin is 12.1. Lactic acid is normal. CT reveals bowel wall thickening of the sigmoid colon, nonspecific. I suspect colitis with diarrhea with a small amount of hematochezia. The patient will be placed on Cipro, Flagyl, and [place] as needed for pain. He is advised to follow-up with his primary physician and may benefit from outpatient gastroenterology evaluation if symptoms persist for outpatient colonoscopy. The patient agrees and understands. He will be discharged home on Cipro and Flagyl. HemaPrompt Point of Care Internal Pos. & Neg. Controls: Passed Fecal Specimen Occult Blood: Positive Diagnosis Primary Impression: Colitis Additional Impression: Hematochezia Patient Instructions: General Instructions Additional Instructions: Medications as directed. Follow-up with your primary physician. Please provide the patient a copy of his CT results and lab results at discharge. Return if symptoms worsen or progress. Follow-up with gastroenterology on an outpatient basis. Med/Other Pt SpecificInfo: Prescription(s) given Scripts Hydrocodone-Acetaminophen ([place]) 5-325 mg Tab 1 TAB PO Q6H Y for PAIN, #12 TAB 0 Refills Prov: Dieudonne Anton MD 01/08/17 Metronidazole (Flagyl) 500 Mg Tab 500 MG PO BID for Infection for 7 Days, #14 TAB 0 Refills Prov: Dieudonne Anton MD 01/08/17 Ciprofloxacin (Cipro) 500 Mg Tab 500 MG PO BID for Infection for 7 Days, #14 TAB 0 Refills Prov: Dieudonne Anton MD 01/08/17 Disposition: 01 DISCHARGE HOME Condition: Stable Dieudonne Anton MD Jan 08, 2017 16:18
[2017-01-08 16:33] LABS: BLOOD, URINE NEG (NEG); GLUCOSE,URINE NEG (NEG); KETONE, URINE NEG (NEG); NITRITE,URINE NEG (NEG)
[2017-01-08] MEDS: SODIUM CHLOR 0.9% 1000 ML INJ 1,000 ML IV SCH ×2 (16:35→19:38)
[2017-01-08 16:37] LABS: URINE COLOR YELLOW (YELLW/STRAW)
[2017-01-08 16:38] LABS: COMMENT (UR) CULT NOT INDICATED; CULTURE IF INDICATED CULT NOT INDICATED; RBC, URINE 0-3 /hpf (0-3); SQUAMOUS EPITHELIAL CELL URINE 0-5 /hpf (0-5)
[2017-01-08 16:48] LABS: CHLORIDE 105 MEQ/L (98-107); POTASSIUM 4.2 MEQ/L (3.5-5.1); SODIUM (NA) 139 MEQ/L (136-145)
[2017-01-08 16:51] LABS: PROTHROMBIN TIME - PATIENT 11.4 SEC (9.8-11.6)
[2017-01-08 16:52] LABS: ANION GAP 4 MEQ/L (5-15); BICARBONATE 30.1 MEQ/L (21.0-32.0); BLOOD UREA NITROGEN 26 MG/DL (7-18)
[2017-01-08 16:55] LABS: ALT (GPT) 34 U/L (12-78); AST (GOT) 29 U/L (15-37); GLOMERULAR FILTRATION RATE 64 ML/MIN (>89)
[2017-01-08 16:57] LABS: TOTAL BILIRUBIN ADULT 0.4 MG/DL (0.2-1.0)
[2017-01-08 16:58] LABS: ALKALINE PHOSPHATASE 69 U/L (45-117)
[2017-01-08 17:00] LABS: AUTOMATED NEUTROPHIL # 7.8 TH/MM3 (1.8-7.7); BASOPHIL % 0.2 % (0.0-2.0); EOSINOPHIL # 0.3 TH/MM3 (0-0.4); EOSINOPHIL % 2.3 % (0.0-4.0); HEMATOCRIT 37.4 % (39.0-51.0); HEMO FLAGS DIFF FINAL; LYMPH % 14.1 % (9.0-44.0); LYMPHOCYTE # 1.6 TH/MM3 (1.0-4.8); MEAN CELL VOLUME 89.1 FL (80.0-100.0); MEAN CORPUSCULAR HEMOGLOBIN 28.9 PG (27.0-34.0); MEAN CORPUSCULAR HGB CONC 32.4 % (32.0-36.0); MONO % 12.5 % (0.0-8.0); NEUT % 70.9 % (16.0-70.0); PLATELET COUNT 250 TH/MM3 (150-450); WHITE BLOOD COUNT 11.1 TH/MM3 (4.0-11.0)
--- NOTE | 2017-01-08 17:46 | RADRPT ---
EXAM DATE/TIME: 01/08/2017 16:51 [facility] COMPARISON: No previous studies available for comparison. INDICATIONS : Lower abdominal pain with blood in stool. ORAL CONTRAST: No oral contrast ingested. RADIATION DOSE: 14.54 CTDIvol (mGy) MEDICAL HISTORY : Hypertension. Hydrocephalus. SURGICAL HISTORY : Penile implant. Cranial shunt. Orthopedic surgery. ENCOUNTER: Initial ACUITY: 1 day PAIN SCALE: 4/10 LOCATION: lower quadrant TECHNIQUE: Volumetric scanning of the abdomen and pelvis was performed. Using automated exposure control and ad justment of the mA and/or kV according to patient size, radiation dose was kept as low as reasonably achievable to obtain optimal diagnostic quality images. DICOM format image data is available electro nically for review and comparison. FINDINGS: Moderate hyperinflation is evident with mild emphysematous changes. Minimal peribronchial thickening . 5 mm nodule left base. Moderate coronary calcifications Small shrunken liver Spleen and pancreas unremarkable Review of it appear normal Small bilateral renal cyst, largest on the left measuring 3.8 cm. Well-circumscribed 1.4 cm nodule right kidney there is high density probably cyst but deserves follow up. There is limits. No adenopathy Region of the cecum and terminal unremarkable Extensive vascular calcifications are evident. The patient has penile implant as well as instructor bridge shunt There is mild bowel wall thickening sigmoid colon mid pelvis, nonspecific. Pelvic contents are otherwise unremarkable Review of bone windows reveals only degenerative changes. Previous lumbar surgery is noted. CONCLUSION: 1. Mild bowel wall thickening mid sigmoid colon within the pelvis, nonspecific 2. Marked vascular calcifications 3. Left renal cyst 4. 1.4 cm probable complex right renal cyst. Followup by ultrasound or CT 6 months is suggested. Francisco J Hoskins MD FACR on January 08, 2017 at 17:39 Board Certified Radiologist. This report was verified electronically.
[2017-01-08] MEDS ORDERED: metroNIDAZOLE 500 MG INJ 100 ML IV ONE (18:00)
[2017-01-08] MEDS ORDERED: CIPROFLOXACIN 500 MG TAB PO ONE (18:00)
[2017-01-08] MEDS ORDERED: METR-1 PO (18:19)
[2017-01-08] MEDS ORDERED: NORC5TAB PO (18:19)
[2017-01-08] MEDS ORDERED: CIPR-9 PO (18:19)
[2017-01-08 19:28] VITALS: BP 125/77; PULSE 128; RESP 18; O2SAT 94
[2017-01-08] MEDS ORDERED: METOPROLOL TARTRATE 5 MG/5 ML VIAL IV PUSH ONE (19:30)
[2017-01-08] MEDS ORDERED: METO25TA3 PO (19:30)
[2017-01-08 20:08] VITALS: BP 108/69; PULSE 95; RESP 18; O2SAT 94
--- NOTE | 2017-01-09 18:55 | EKG ---
Date Performed: 01/08/2017 Time Performed: 19:38:29 PTAGE: 86 years EKG: ATRIAL FIBRILLATION WITH RAPID VENTRICULAR RESPONSE NONSPECIFIC T-WAVE ABNORMALITY WHEN COM PARED TO PRIOR EKG PATIENT IS NOW IN ATRIAL FIBRILLATION WITH RAPID VENTRICULAR RATE. ABNORMAL RHYTH M ECG PREVIOUS TRACING : 03/10/2016 11.31 DOCTOR: Perla Sarmiento Interpretating Date/Time 01/09/2017 18:54:07
== END 2017-01-08 20:13 | disposition home or self-care (01) ==
LOC: PHED 15:21
DX: K52.9 Noninfective gastroenteritis and colitis, unspecified (principal); K92.1 Melena; I48.91 Unspecified atrial fibrillation; N28.1 Cyst of kidney, acquired; I10 Essential (primary) hypertension; J44.9 Chronic obstructive pulmonary disease, unspecified; M06.9 Rheumatoid arthritis, unspecified; Z79.899 Other long term (current) drug therapy
CPT/HCPCS: 74176; 80053; 81001; 83605; 83690; 85025; 85610; 86850; 86900; 86901; 93005; 96361; 96365; 96375; 99285; C9113; J2270; J2405; J7030

== ENCOUNTER 2017-11-27 09:50 | Observation (INO) ==
[2017-11-27] MEDS ORDERED: Naloxone Inj 0.4 MG/ML Vial IV.PUSH ONE (10:17)
[2017-11-27] MEDS ORDERED: Sod Chloride 0.9% Inj 1,000 ML IV.CONT ONE (10:30)
--- NOTE | 2017-11-27 11:03 | ED ---
HPI General Chief Complaint: Altered Mental Status Stated Complaint: weakness Time Seen by Provider: 11/27/17 10:02 History of Present Illness HPI narrative: This is a an 87-year-old male with a history of COPD, hypertension, rheumatoid arthritis, who presents today with lethargy and decreased mental status. The patient is status post penile prosthesis removal yesterday by Dr. Axel Apple with [facility]. Patient went home yesterday around 730. When he arrived he was unsteady on his gait however more alert than he was this morning when he woke up. states that he was barely awake and not as responsive as he normally is. She therefore called her daughter and they brought him here. Related Data Home Medications Medication Instructions Recorded Confirmed albuterol sulfate [Ventolin HFA] 1 puff INHALATION Q6H PRN 11/27/17 11/27/17 amlodipine 5 mg PO DAILY 11/27/17 11/27/17 budesonide-formoterol [Symbicort] 2 puff INHALATION BID 11/27/17 11/27/17 enalapril maleate 20 mg PO DAILY 11/27/17 11/27/17 folic acid 1 mg PO DAILY 11/27/17 11/27/17 ipratropium-albuterol 3 ml INHALATION QID 11/27/17 11/27/17 methotrexate sodium 7.5 mg PO WEEKLY 11/27/17 11/27/17 metoprolol tartrate 25 mg PO BID 11/27/17 11/27/17 prednisone 5 mg PO BID 11/27/17 11/27/17 Allergies Allergy/AdvReac Type Severity Reaction Status Date / Time leflunomide Allergy Mild RASH Verified 11/27/17 10:00 Review of Systems ROS: all other systems reviewed are negative Constitutional Reports system reviewed and no additional complaints, except as docu Eyes Denies dry eyes and Reports other ENT Reports system reviewed and no additional complaints, except as docu Cardiovascular Reports system reviewed and no additional complaints, except as docu Respiratory Reports system reviewed and no additional complaints, except as docu Gastrointestinal Denies abdominal pain, Denies nausea and Denies vomiting Genitourinary Denies hematuria, Denies flank pain and Reports other (Recent penile implant removal. Yesterday.) Musculoskeletal Denies back pain and Reports muscle weakness Neurologic Reports confusion, Reports vertigo, Reports weakness (Generalized) and Reports other (Lethargy) PMFSH Medical History Medical History Afib (Acute) Emphysema of lung (Acute) HTN (hypertension) (Acute) Rheumatoid arthritis (Acute) Surgical History Surgical History History of penile implant (Acute) History of rotator cuff surgery (Acute) Social History Social History Substance History: No History of Abuse Second Hand Smoke Exposure: No Smoking Status: Former smoker How Often Do You Have a Drink Containing Alcohol: 2 to 3 times a week Recent Travel in [facility] within the Last 8 Weeks: No Recent Out of Country Travel within the Last 8 Weeks: No Immunization History Tetanus Immunization: Unsure Hx Influenza Vaccine This Season: Yes Exam Narrative Exam Narrative: GENERAL: Well-developed well-nourished male who appears lethargic and sleepy. SKIN: Focused skin assessment warm/dry. HEAD: Atraumatic. Normocephalic. EYES: Pupils equal and 1 mm. No scleral icterus. No injection or drainage. ENT: No nasal bleeding or discharge. Mucous membranes pink and moist. NECK: Trachea midline. No JVD. CARDIOVASCULAR: Regular rate and rhythm. No murmur appreciated. RESPIRATORY: No accessory muscle use. Clear to auscultation. Breath sounds equal bilaterally. GASTROINTESTINAL: Abdomen soft, non-tender, nondistended. Hepatic and splenic margins not palpable. MUSCULOSKELETAL: No obvious deformities. No clubbing. No cyanosis. No edema. GENITOURINARY: Circumcised. Testes descended bilaterally without evidence of rotation. No obvious urethral discharge. There is a Hutchinson catheter in his penis. There is no erythema or cellulitis noted. There is postsurgical bandages on the suprapubic and scrotal area. NEUROLOGICAL: Awake and lethargic. The patient falls asleep mid sentence. No obvious cranial nerve deficits. Motor grossly within normal limits. Course Initial Documented Vital Signs Temperature 98.8 F 11/27/17 10:00 Pulse Rate 93 H 11/27/17 10:00 Respiratory Rate 29 H 11/27/17 10:00 Blood Pressure 144/60 H 11/27/17 10:00 Pulse Oximetry 89 L 11/27/17 10:00 Last Documented Vital Signs Temperature 98.8 F 11/27/17 10:00 Pulse Rate 93 H 11/27/17 10:00 Respiratory Rate 29 H 11/27/17 10:00 Blood Pressure 144/60 H 11/27/17 10:00 Pulse Oximetry 99 09/25/18 11:01 Medical Decision Making MDM Narrative Medical decision making narrative: 87-year-old male status post penile prosthesis removal yesterday, presents here with altered mental status and lethargy. Patient appears to be lethargic however is arousable to discussion and stimuli. White count is elevated at above 13,000. Patient also has acute on chronic kidney injury. Patient is noted to have a UTI. He has been started on Rocephin and IV fluids. [facility] who agrees with the admission. Medical Screen Exam Complete: Yes Emergency Medical Condition: Yes Differential Diagnosis Differential Diagnosis: Sepsis versus overmedication versus metabolic derangement Lab Data Result diagrams: 11/27/17 10:45 11/27/17 10:45 Lab Results 11/27/17 11/27/17 11/27/17 Range/Units 10:45 10:45 10:45 WBC 13.1 H (4.0-11.0) th/mm3 RBC 4.18 L (4.50-5.90) mil/mm3 Hgb 13.2 (13.0-17.0) gm/dL Hct 42.0 (39.0-51.0) % MCV 100.6 H (80.0-100.0) fL MCH 31.6 (27.0-34.0) pg MCHC 31.4 L (32.0-36.0) % RDW 15.7 (11.6-17.2) % Plt Count 225 (150-450) th/mm3 MPV 9.2 (7.0-11.0) fL Neut % (Auto) 74.9 H (16.0-70.0) % Lymph % (Auto) 10.0 (9.0-44.0) % [place] % (Auto) 14.7 H (0.0-8.0) % Eos % (Auto) 0.3 (0.0-4.0) % Baso % (Auto) 0.1 (0.0-2.0) % Neut # (Auto) 9.8 H (1.8-7.7) th/mm3 Lymph # (Auto) 1.3 (1.0-4.8) th/mm3 [place] # (Auto) 1.9 H (0.0-0.9) th/mm3 Eos # (Auto) 0.0 (0.0-0.4) th/mm3 Baso # (Auto) 0.0 (0.0-0.2) th/mm3 WBC Differential . Differential Comment Auto diff final Sodium 147 H (136-145) meq/L Potassium 3.9 (3.5-5.1) meq/L Chloride 109 H (98-107) meq/L Carbon Dioxide 31.3 (21.0-32.0) meq/L Anion Gap 7 (5-15) meq/L BUN 27 H (7-18) mg/dL Creatinine 1.74 H (0.60-1.30) mg/dL Estimated GFR 37 L (>89) mL/min Random Glucose 123 H (74-106) mg/dL Lactic Acid 1.1 (0.4-2.0) mmol/L Calcium 7.9 L (8.5-10.1) mg/dL Total Bilirubin 0.3 (0.2-1.0) mg/dL AST 11 L (15-37) U/L ALT 13 (12-78) U/L Alkaline Phosphatase 52 (45-117) U/L Total Protein 6.4 (6.4-8.2) g/dL Albumin 3.0 L (3.4-5.0) g/dL Urine Color (Yellw/Straw) Urine Clarity (Clear) Urine pH (5.0-8.5) Ur Specific [place] (1.002-1.035) Urine Protein (Neg-Trace) mg/dL Urine Glucose (UA) (Negative) mg/dL Urine Ketones (Negative) mg/dL Urine Occult Blood (Negative) Urine Nitrate (Negative) Urine Bilirubin (Negative) Urine Urobilinogen (Less than 2) mg/dL Ur Leukocyte Esterase (Negative) Urine RBC (0-3) /hpf Urine WBC (0-5) /hpf Urine WBC Clumps (None) Ur Squamous Epith Cells (0-5) /hpf Amorphous Sediment (None) /hpf Urine Bacteria (None) /hpf Hyaline Casts (0-3) /lpf Urine Mucus (Occasional) /lpf Micro UA Comment Ur Microscopic Review Urine Culture Comments 11/27/17 Range/Units 10:46 WBC (4.0-11.0) th/mm3 RBC (4.50-5.90) mil/mm3 Hgb (13.0-17.0) gm/dL Hct (39.0-51.0) % MCV (80.0-100.0) fL MCH (27.0-34.0) pg MCHC (32.0-36.0) % RDW (11.6-17.2) % Plt Count (150-450) th/mm3 MPV (7.0-11.0) fL Neut % (Auto) (16.0-70.0) % Lymph % (Auto) (9.0-44.0) % [place] % (Auto) (0.0-8.0) % Eos % (Auto) (0.0-4.0) % Baso % (Auto) (0.0-2.0) % Neut # (Auto) (1.8-7.7) th/mm3 Lymph # (Auto) (1.0-4.8) th/mm3 [place] # (Auto) (0.0-0.9) th/mm3 Eos # (Auto) (0.0-0.4) th/mm3 Baso # (Auto) (0.0-0.2) th/mm3 WBC Differential Differential Comment Sodium (136-145) meq/L Potassium (3.5-5.1) meq/L Chloride (98-107) meq/L Carbon Dioxide (21.0-32.0) meq/L Anion Gap (5-15) meq/L BUN (7-18) mg/dL Creatinine (0.60-1.30) mg/dL Estimated GFR (>89) mL/min Random Glucose (74-106) mg/dL Lactic Acid (0.4-2.0) mmol/L Calcium (8.5-10.1) mg/dL Total Bilirubin (0.2-1.0) mg/dL AST (15-37) U/L ALT (12-78) U/L Alkaline Phosphatase (45-117) U/L Total Protein (6.4-8.2) g/dL Albumin (3.4-5.0) g/dL Urine Color [place] (Yellw/Straw) Urine Clarity Cloudy H (Clear) Urine pH 5.0 (5.0-8.5) Ur Specific [place] 1.019 (1.002-1.035) Urine Protein 100 H (Neg-Trace) mg/dL Urine Glucose (UA) Negative (Negative) mg/dL Urine Ketones Trace H (Negative) mg/dL Urine Occult Blood Large H (Negative) Urine Nitrate Negative (Negative) Urine Bilirubin Negative (Negative) Urine Urobilinogen Less than 2 (Less than 2) mg/dL Ur Leukocyte Esterase Large H (Negative) Urine RBC (0-3) /hpf Urine WBC (0-5) /hpf Urine WBC Clumps Moderate H (None) Ur Squamous Epith Cells 1 (0-5) /hpf Amorphous Sediment Occasional H (None) /hpf Urine Bacteria Moderate H (None) /hpf Hyaline Casts 18 (0-3) /lpf Urine Mucus Many H (Occasional) /lpf Micro UA Comment Cath-culture ind Ur Microscopic Review Not Reportable Urine Culture Comments Cath-cult indicated Imaging Data Radiologist's impression: Chest X-Ray 11/27/17 10:17 CONCLUSION: No acute pulmonary infiltrates. No significant changes compared to the prior study. Discharge Plan Discharge Disposition Patient Disposition: 30 Still Patient Discharge Details Diagnosis: Sepsis, Urinary tract infection associated with indwelling urethral catheter, [id number] kidney injury Physicians Team ED Provider: Yung Mcnally Primary Care Provider: Ayah Ahn Attending Provider: Farzaneh Oneal Rxs /Orders / Referrals /Forms Prescriptions: No Action ipratropium-albuterol 0.5 mg-3 mg(2.5 mg base)/3 mL Solution For Nebulization 3 ml INHALATION QID RF: 0 enalapril maleate 20 mg Tablet 20 mg PO DAILY RF: 0 amlodipine 5 mg Tablet 5 mg PO DAILY RF: 0 methotrexate sodium 2.5 mg Tablet 7.5 mg PO WEEKLY RF: 0 prednisone 1 mg Tablet 5 mg PO BID RF: 0 folic acid 1 mg Tablet 1 mg PO DAILY RF: 0 albuterol sulfate [Ventolin HFA] 90 mcg/actuation Hfa Aerosol Inhaler 1 puff INHALATION Q6H PRN (Reason: Shortness Of Breath Or Wheezing) RF: 0 metoprolol tartrate 25 mg Tablet 25 mg PO BID RF: 0 budesonide-formoterol [Symbicort] 160-4.5 mcg/actuation Hfa Aerosol Inhaler 2 puff INHALATION BID RF: 0 Status ED Status: Admitted Observation Patient
[2017-11-27 11:05] LABS: Baso % (Auto) 0.1 % (0.0-2.0); Eos % (Auto) 0.3 % (0.0-4.0); Hemoglobin 13.2 gm/dL (13.0-17.0); Lymph # (Auto) 1.3 th/mm3 (1.0-4.8); Mean Corpuscular HGB Conc 31.4 % (32.0-36.0); Mean Corpuscular Hemoglobin 31.6 pg (27.0-34.0); Mean Corpuscular Volume 100.6 fL (80.0-100.0); Mean Platelet Volume 9.2 fL (7.0-11.0); Mono # (Auto) 1.9 th/mm3 (0.0-0.9); Mono % (Auto) 14.7 % (0.0-8.0); Neut # (Auto) 9.8 th/mm3 (1.8-7.7); Neut % (Auto) 74.9 % (16.0-70.0); Platelet Count 225 th/mm3 (150-450); Red Blood Count 4.18 mil/mm3 (4.50-5.90); Red Cell Distribution Width 15.7 % (11.6-17.2); White Blood Count 13.1 th/mm3 (4.0-11.0)
[2017-11-27 11:12] LABS: Amorphous Sediment,Urine Occasional /hpf; Bacteria,Urine Moderate /hpf; Bilirubin,Urine Negative (Negative); Clarity,Urine Cloudy (Clear); Color,Urine Amber (Yellw/Straw); Glucose,Urine (UA) Negative (Negative); Hyaline Casts,Urine 18 /lpf (0-3); Leukocyte Esterase,Urine Large (Negative); Mucus,Urine Many /lpf (Occasional); Nitrite,Urine Negative (Negative); Specific Gravity,Urine 1.019 (1.002-1.035); Squamous Epithelial Cell,Urine 1 /hpf (0-5)
[2017-11-27 11:21] LABS: Alanine Aminotransferase 13 U/L (12-78); Anion Gap 7 meq/L (5-15); Aspartate Aminotransferase 11 U/L (15-37); Blood Urea Nitrogen 27 mg/dL (7-18); Calcium 7.9 mg/dL (8.5-10.1); Carbon Dioxide 31.3 meq/L (21.0-32.0); Chloride 109 meq/L (98-107); Glomerular Filtration Rate 37 mL/min (>89); Glucose,Random 123 mg/dL (74-106); Potassium 3.9 meq/L (3.5-5.1); Sodium 147 meq/L (136-145)
[2017-11-27 11:24] LABS: Alkaline Phosphatase 52 U/L (45-117); Total Protein 6.4 g/dL (6.4-8.2)
--- NOTE | 2017-11-27 11:29 | XR ---
EXAM DATE: 11/27/2017 10:17 AM EDT AGE/SEX: 87 years / Male INDICATIONS: Short of breath. CLINICAL DATA: This is the patient's initial encounter. Patient reports that signs and symptoms have been present for 1 day and indicates a pain score of 0/10. MEDICAL/SURGICAL HISTORY: . Hypertension. Emphysema. hydrocephalus. . Cranial shunt. COMPARISON: [facility]PO, CHEST SINGLE AP, 03/10/2016. . FINDINGS: A single AP view of the chest demonstrates the lungs to be symmetrically aerated without evidence of mass, infiltrate or effusion. There is mild stable scarring in both lung bases. The cardiomediastina l contours are unremarkable. Osseous structures are intact. Stable right-sided shunt tubing. CONCLUSION: No acute pulmonary infiltrates. No significant changes compared to the prior study. Electronically signed by: Kevin Monroe MD 11/27/2017 11:27 AM EDT
[2017-11-27] MEDS ORDERED: Sodium Chlor 0.9% Inj 500 ML IV.SIG SCH (12:00)
[2017-11-27] MEDS ORDERED: Bisacodyl 10 MG Supp RECTAL PRN (12:19)
[2017-11-27] MEDS ORDERED: Acetaminophen 325 MG Tablet PO PRN ×2 (12:19→14:01)
--- NOTE | 2017-11-27 12:29 | P.HPIM ---
History of Present Illness Service: [facility] Primary Care Physician: Ayah Ahn MD Chief Complaint: AMS History of Present Illness: This is an 87-year-old CM with PMHx of COPD, HTN, AFib, and RA who presented to the ED due to lethargy and confusion. While in the ED, the patient's daughter and mentioned that the patient had his penile prosthesis removal yesterday by Dr. Axel Apple with [facility]. The patient was discharged home yesterday and was a little unsteady in his gait but was alert. Patient this AM woke up with confusion and did not know where he was. Patient was able to respond to questions when asked but was lethargic. denies recent illness, fever, chills, N/V/D. Upon my evaluation patient was alone however I spoke to the ED physician as well as the patient for further information. At baseline patient is alert and is able to complete ADL's independently. Patient was admitted with a zapata that was already in place. - Diagnosis (1) Sepsis (2) Urinary tract infection associated with indwelling urethral catheter (3) Fkabz-ha-yzscrls kidney injury (4) COPD (chronic obstructive pulmonary disease) (5) Hypertension (6) Rheumatoid arthritis Review of Systems All other systems reviewed negative except as stated in HPI [facility] - History History Provided By: Patient, Family Member, Medical Record, Director Epidemiology / EMT - Medical History Medical History: Medical History (Last Reviewed 11/27/17 @ 14:56 by Farzaneh Oneal MD) Afib Emphysema of lung HTN (hypertension) Rheumatoid arthritis - Surgical History Surgical History: Surgical History (Last Reviewed 11/27/17 @ 14:56 by Farzaneh Oneal MD) History of penile implant History of rotator cuff surgery - Tobacco History Second Hand Smoke Exposure: No Tobacco Use In Past 30 Days: No Smoking Status: Former smoker - Alcohol History How Often Do You Have a Drink Containing Alcohol: 2 to 3 times a week (patient lives with his ) - Substance Use History Substance History: No History of Abuse - Travel History Recent Travel in the [place] Within the Last 8 Weeks: No Recent Travel Out of the Country Within the Last 8 Weeks: No - Immunization History Tetanus Immunization: Unsure Hx Influenza Vaccine This Season: Yes Medications and Allergies Active Medications: Active Medications Acetaminophen (Tylenol) 650 mg PO Q4H PRN PRN Reason: Temp > 100.4 Al Hydroxide/Mg Hydroxide (Milk Of Magnesia Liq) 30 ml PO Q12H PRN PRN Reason: Mild Constipation Bisacodyl (Dulcolax Supp) 10 mg RECTAL DAILY PRN PRN Reason: SEVERE CONSITIPATION Sodium Chloride (Ns Inj) 1,000 mls @ 100 mls/hr IV.CONT .Q10H ONE Stop: 11/27/17 20:29 Last Admin: 11/27/17 10:44 Dose: 100 mls/hr Sodium Chloride (Ns Inj) 500 mls @ 0 mls/hr IV.SIG BOLUS DANIEL Last Admin: 11/27/17 12:05 Dose: 999 mls/hr Sodium Chloride (Ns Inj) 1,000 mls @ 100 mls/hr IV.CONT .Q10H DANIEL Ceftriaxone Sodium 1,000 mg/ (Sodium Chloride) 100 mls @ 200 mls/hr IV.SIG Q24H DANIEL Lactulose (Lactulose Liq) 30 ml PO DAILY PRN PRN Reason: SEVERE CONSITIPATION Ondansetron HCl (Zofran Inj) 4 mg IV.PUSH Q6H PRN PRN Reason: NAUSEA OR VOMITING Senna/Docusate Sodium (Sandee-Colace) 1 tab PO BID DANIEL Sennosides (Senokot) 17.2 mg PO Q12H PRN PRN Reason: Moderate Constipation Allergies Allergy/AdvReac Type Severity Reaction Status Date / Time leflunomide Allergy Mild RASH Verified 11/27/17 10:00 Home Medications Medication Instructions Recorded Confirmed Type albuterol sulfate [Ventolin HFA] 1 puff INHALATION Q6H PRN 11/27/17 11/27/17 History amlodipine 5 mg PO DAILY 11/27/17 11/27/17 History budesonide-formoterol [Symbicort] 2 puff INHALATION BID 11/27/17 11/27/17 History enalapril maleate 20 mg PO DAILY 11/27/17 11/27/17 History folic acid 1 mg PO DAILY 11/27/17 11/27/17 History ipratropium-albuterol 3 ml INHALATION QID 11/27/17 11/27/17 History methotrexate sodium 7.5 mg PO WEEKLY 11/27/17 11/27/17 History metoprolol tartrate 25 mg PO BID 11/27/17 11/27/17 History prednisone 5 mg PO BID 11/27/17 11/27/17 History Exam Vital signs: Vital Signs 11/27/17 10:00 11/27/17 11:01 Temperature 98.8 F Pulse Rate 93 H Respiratory Rate 29 H Blood Pressure 144/60 H Pulse Oximetry 89 L 99 Intake & Output 11/26/17 11/27/17 11/27/17 18:59 06:59 18:59 Weight 90.718 kg Narrative: GENERAL: thin, male, in NAD SKIN: Warm and dry. HEAD: Normocephalic. EYES: No scleral icterus. No injection or drainage. NECK: Supple, trachea midline. No JVD or lymphadenopathy. CARDIOVASCULAR: Regular rate and rhythm without murmurs, gallops, or rubs. RESPIRATORY: Breath sounds equal bilaterally. No accessory muscle use. GASTROINTESTINAL: Abdomen soft, non-tender, nondistended. MUSCULOSKELETAL: No cyanosis, or edema. BACK: Nontender without obvious deformity. No CVA tenderness. NEURO: AAOx1, sensation intact to light touch, motor system 5/5, DTR2+ Results - Labs CBC & Chem 7: 11/27/17 10:45 11/27/17 10:45 Labs: Short CBC 11/27/17 Range/Units 10:45 WBC 13.1 H (4.0-11.0) th/mm3 Hgb 13.2 (13.0-17.0) gm/dL Hct 42.0 (39.0-51.0) % Plt Count 225 (150-450) th/mm3 BMP 11/27/17 10:45 Sodium 147 H Potassium 3.9 Chloride 109 H Carbon Dioxide 31.3 BUN 27 H Creatinine 1.74 H Calcium 7.9 L Liver Function 11/27/17 Range/Units 10:45 Total Bilirubin 0.3 (0.2-1.0) mg/dL AST 11 L (15-37) U/L ALT 13 (12-78) U/L Alkaline Phosphatase 52 (45-117) U/L Albumin 3.0 L (3.4-5.0) g/dL Urine 11/27/17 Range/Units 10:46 Urine Color Nazia (Yellw/Straw) Urine Clarity Cloudy H (Clear) Urine pH 5.0 (5.0-8.5) Ur Specific [place] 1.019 (1.002-1.035) Urine Protein 100 H (Neg-Trace) mg/dL Urine Glucose (UA) Negative (Negative) mg/dL - Imaging Impressions Chest X-Ray 11/27/17 10:17 CONCLUSION: No acute pulmonary infiltrates. No significant changes compared to the prior study. Caprini VTE Risk Assessment Caprini VTE Risk Assessment: No/Low Risk (score <= 1) Caprini Risk Assessment Model: Point Value = 1 Point Value = 2 Point Value = 3 Point Value = 5 Age 41-60 Minor surgery BMI > 25 kg/m2 Swollen legs Varicose veins or History of unexplained or recurrent spontaneous Oral contraceptives or hormone replacement Sepsis (< 1 month) Serious lung disease, including pneumonia (< 1 month) Abnormal pulmonary function Acute myocardial infarction Congestive heart failure (< 1 month) History of inflammatory bowel disease Medical patient at bed rest Age 61-74 Arthroscopic surgery Major open surgery (> 45 min) Laparoscopic surgery (> 45 min) Malignancy Confined to bed (> 72 hours) Immobilizing plaster cast Central venous access Age >= 75 History of VTE Family history of VTE Factor V Leiden Prothrombin [id number] Lupus anticoagulant Anticardiolipin antibodies Elevated serum homocysteine Heparin-induced thrombocytopenia Other congenital or acquired thrombophilia Stroke (< 1 month) Elective arthroplasty Hip, pelvis, or leg fracture Acute spinal cord injury (< 1 month) Prophylaxis Regimen: Total Risk Factor Score Risk Level Prophylaxis Regimen 0-1 Low Early ambulation 2 Moderate Order ONE of the following: *Sequential Compression Device (SCD) *Heparin 5000 units SQ BID 3-4 Higher Order ONE of the following medications: *Heparin 5000 units SQ TID *Enoxaparin/Lovenox 40 mg SQ daily (WT < 150 kg, CrCl > 30 mL/min) *Enoxaparin/Lovenox 30 mg SQ daily (WT < 150 kg, CrCl > 10-29 mL/min) *Enoxaparin/Lovenox 30 mg SQ BID (WT < 150 kg, CrCl > 30 mL/min) AND/OR *Sequential Compression Device (SCD) 5 or more Highest Order ONE of the following medications: *Heparin 5000 units SQ TID (Preferred with Epidurals) *Enoxaparin/Lovenox 40 mg SQ daily (WT < 150 kg, CrCl > 30 mL/min) *Enoxaparin/Lovenox 30 mg SQ daily (WT < 150 kg, CrCl > 10-29 mL/min) *Enoxaparin/Lovenox 30 mg SQ BID (WT < 150 kg, CrCl > 30 mL/min) AND *Sequential Compression Device (SCD) Assessment and Plan - Assessment (1) Sepsis Code(s): A41.9 - Sepsis, unspecified organism Status: Acute (2) Urinary tract infection associated with indwelling urethral catheter Code(s): T83.511A - Infection and inflammatory reaction due to indwelling urethral catheter, initial encounter; N39.0 - Urinary tract infection, site not specified Status: Acute (3) Hzgeq-bd-ihjgftw kidney injury Code(s): N17.9 - Acute kidney failure, unspecified; N18.9 - Chronic kidney disease, unspecified Status: Acute (4) COPD (chronic obstructive pulmonary disease) Code(s): J44.9 - Chronic obstructive pulmonary disease, unspecified Status: Acute (5) Hypertension Code(s): I10 - Essential (primary) hypertension Status: Acute (6) Rheumatoid arthritis Code(s): M06.9 - Rheumatoid arthritis, unspecified Status: Acute - Plan This is an 87-year-old CM with PMHx of COPD, HTN, AFib, and RA who presented to the ED due to lethargy and confusion. Patient is s/p removal of penile prosthesis removal yesterday by Dr. Axel Apple with [facility]. The patient was discharged home in stable condition however this AM had sudden onset of AMS and lethargy. Patient admitted for IP mgmt of UTI on Ceftriaxone, Leukocytosis, and BLAKE, HD#1 1. UTI UA with moderate WBC, Large LE, neg nitrites Pending urine Cx Cont. Ceftriaxone 1gm IV Q24hrs, started on 11/26 F/U CRP, CBC, and CMP in AM 2. Leukocytosis WBC 13.1 on admission, secondary to UTI Bld Cx on 11/26 pending CXR Neg Will F/U CBC in AM 3. Acute on Chronic Renal Insufficiency Creatinine 1.74 on admission, BUN 27 Baseline Creatinine 1.1 in 2017 per EMR review Cont. IVF Avoid nephrotoxic drugs 4. Hypernatremia On 2NS for BLAKE Will cont. to monitor 5. COPD Unsure if home O2 is required, patient is unable to answer question and family is not present on my admission, will inquire during hospitalization Cont. home Symbicort BID, Ipratropium QID, and Albuterol PRN 6. HTN Stable Cont. home Metoprolol, Amlodipine, and Enalapril 7. RA Cont. home Prednisone, holding MTX due to RI 8. Hx of AFib Normal SR on exam Unsure why patient is not on ASA or other anticoagulant Chads2 score: 2 Discuss hx with family to determine further mgmt 9. DVT PPX: SCD's 10. Dispo: Cont. IVF and Ceftriaxone, F/U Urine Cx, F/U AM labs Code Status: full Discussed Condition With: patient
[2017-11-27] MEDS ORDERED: Sod Chloride 0.9% Inj 1,000 ML IV.CONT SCH (12:30)
[2017-11-27] MEDS: amLODIPine 5 MG Tablet PO SCH (14:46)
[2017-11-27] MEDS: Metoprolol Tartrate 25 MG Tablet PO SCH ×2 (14:46→21:34)
[2017-11-27] MEDS: Folic Acid 1 MG Tablet PO SCH (14:47)
[2017-11-27] MEDS: Sodium Chloride 0.45 % Inj 1,000 ML IV.CONT SCH (17:44)
[2017-11-27] MEDS: Budesonide-Formoterol 160/4.5 MCG 6 GM Inhaler INH SCH (21:32)
[2017-11-27] MEDS: Senna/Docusate Sodium 8.6/50 MG Tablet PO SCH (21:34)
[2017-11-27] MEDS: predniSONE 5 MG Tablet PO SCH (21:34)
--- NOTE | 2017-11-27 22:41 | ECG ---
Date Performed: 11/27/2017 Time Performed: 14:11:45 PTAGE: 87 years EKG: ATRIAL FIBRILLATION WITH RAPID VENTRICULAR RESPONSE NONSPECIFIC ST & T-WAVE ABNORMALITY ABN ORMAL ECG PREVIOUS TRACING : 01/08/2017 19.38 Since the previous tracing, no significant change noted DOCTOR: Gage Curtis Interpretating Date/Time 11/27/2017 22:40:16
[2017-11-28] MEDS: Sodium Chloride 0.45 % Inj 1,000 ML IV.CONT SCH ×5 (00:26→15:52)
[2017-11-28 06:02] LABS: Baso % (Auto) 0.2 % (0.0-2.0); Eos % (Auto) 0.3 % (0.0-4.0); Hematocrit 37.2 % (39.0-51.0); Lymph # (Auto) 1.5 th/mm3 (1.0-4.8); Lymph % (Auto) 12.3 % (9.0-44.0); Mean Corpuscular HGB Conc 32.3 % (32.0-36.0); Mean Corpuscular Hemoglobin 32.6 pg (27.0-34.0); Mean Corpuscular Volume 100.8 fL (80.0-100.0); Mean Platelet Volume 8.6 fL (7.0-11.0); Mono # (Auto) 1.5 th/mm3 (0.0-0.9); Mono % (Auto) 12.5 % (0.0-8.0); Neut # (Auto) 8.9 th/mm3 (1.8-7.7); Neut % (Auto) 74.7 % (16.0-70.0); Platelet Count 167 th/mm3 (150-450); Red Blood Count 3.69 mil/mm3 (4.50-5.90); Red Cell Distribution Width 15.4 % (11.6-17.2)
[2017-11-28 06:35] LABS: Albumin 2.4 g/dL (3.4-5.0); C-Reactive Protein 15.4 mg/dL (0.00-0.30); Calcium 7.4 mg/dL (8.5-10.1); Carbon Dioxide 30.5 meq/L (21.0-32.0); Potassium 4.2 meq/L (3.5-5.1); Total Protein 5.8 g/dL (6.4-8.2)
[2017-11-28] MEDS: Metoprolol Tartrate 25 MG Tablet PO SCH ×2 (08:39→21:24)
[2017-11-28] MEDS: Folic Acid 1 MG Tablet PO SCH (08:39)
[2017-11-28] MEDS: predniSONE 5 MG Tablet PO SCH ×2 (08:39→21:24)
[2017-11-28] MEDS: amLODIPine 5 MG Tablet PO SCH (08:39)
[2017-11-28] MEDS: Senna/Docusate Sodium 8.6/50 MG Tablet PO SCH ×2 (08:40→21:24)
--- NOTE | 2017-11-28 08:56 | P.PNIM ---
Subjective Interval history: f/u; UTI in no acute distress. awake, alert and oriented. says that he feels much better today. no fever. daughter at the bedside. d/w the RN. Physical Exam Vital signs: Vital Signs 11/27/17 10:00 11/27/17 11:01 11/27/17 14:48 Temperature 98.8 F Pulse Rate 93 H 144 H Respiratory Rate 29 H 21 Blood Pressure 144/60 H 152/63 H Pulse Oximetry 89 L 99 100 11/27/17 16:32 11/27/17 17:45 11/27/17 20:00 Temperature 97.8 F 98 F Pulse Rate 119 H 110 H 112 H Respiratory Rate 21 16 20 Blood Pressure 126/69 104/60 98/61 L Pulse Oximetry 99 96 97 11/28/17 00:00 11/28/17 03:50 11/28/17 04:00 Temperature 98.5 F 98.5 F Pulse Rate 121 H 67 97 H Respiratory Rate 20 20 Blood Pressure 110/65 111/64 Pulse Oximetry 96 99 11/28/17 08:34 Temperature Pulse Rate Respiratory Rate Blood Pressure Pulse Oximetry 98 Intake & Output 11/27/17 11/28/17 11/28/17 18:59 06:59 18:59 Intake Total 2800 / 2800 1050 / 1050 Output Total 800 / 800 Balance 2800 / 2800 250 / 250 Weight 90.718 kg 90.7 kg Intake: IV 2800 / 2800 570 / 570 NS Inj 1,000 ML @ 100 mls/hr IV 1200 / 1200 .CONT .Q10H DANIEL Rx#:[id number] 1/2 Normal Saline Inj 1,000 ML 1000 / 1000 570 / 570 @ 125 mls/hr IV.CONT .Q8H DANIEL Rx#:[id number] NS Inj 500 ML @ Wide Open IV. 500 / 500 SIG BOLUS DANIEL Rx#:[id number] Rocephin Inj 1,000 MG In NS Inj 100 / 100 100 ML @ 200 mls/hr IV.SIG ONCE ONE Rx#:[id number] Oral 480 / 480 Output: Urine 800 / 800 - Constitutional no acute distress - Routine Respiratory Exam Present: wheezes (mild bilateral wheezing.) - Routine Cardiovascular Exam Present: RRR - Routine Abdominal Exam Present: soft - Routine Extremities Exam Comments: no pedal edema. - Routine Neurological Exam Present: alert, oriented X3 Results - Labs CBC & Chem 7: 11/28/17 05:16 11/28/17 05:16 Laboratory Results - last 24 hr 11/27/17 11/27/17 11/27/17 10:45 10:45 10:45 WBC 13.1 H RBC 4.18 L Hgb 13.2 Hct 42.0 MCV 100.6 H MCH 31.6 MCHC 31.4 L RDW 15.7 Plt Count 225 MPV 9.2 Neut % (Auto) 74.9 H Lymph % (Auto) 10.0 [place] % (Auto) 14.7 H Eos % (Auto) 0.3 Baso % (Auto) 0.1 Neut # (Auto) 9.8 H Lymph # (Auto) 1.3 [place] # (Auto) 1.9 H Eos # (Auto) 0.0 Baso # (Auto) 0.0 WBC Differential . Differential Comment Auto diff final Sodium 147 H Potassium 3.9 Chloride 109 H Carbon Dioxide 31.3 Anion Gap 7 BUN 27 H Creatinine 1.74 H Estimated GFR 37 L Random Glucose 123 H Lactic Acid 1.1 Calcium 7.9 L Prot Corrected Calcium Total Bilirubin 0.3 AST 11 L ALT 13 Alkaline Phosphatase 52 C-Reactive Protein Total Protein 6.4 Albumin 3.0 L Urine Color Urine Clarity Urine pH Ur Specific [place] Urine Protein Urine Glucose (UA) Urine Ketones Urine Occult Blood Urine Nitrate Urine Bilirubin Urine Urobilinogen Ur Leukocyte Esterase Urine RBC Urine WBC Urine WBC Clumps Ur Squamous Epith Cells Amorphous Sediment Urine Bacteria Hyaline Casts Urine Mucus Micro UA Comment Ur Microscopic Review Urine Culture Comments 11/27/17 11/28/17 11/28/17 10:46 05:16 05:16 WBC 12.0 H RBC 3.69 L Hgb 12.0 L Hct 37.2 L MCV 100.8 H MCH 32.6 MCHC 32.3 RDW 15.4 Plt Count 167 MPV 8.6 Neut % (Auto) 74.7 H Lymph % (Auto) 12.3 [place] % (Auto) 12.5 H Eos % (Auto) 0.3 Baso % (Auto) 0.2 Neut # (Auto) 8.9 H Lymph # (Auto) 1.5 [place] # (Auto) 1.5 H Eos # (Auto) 0.0 Baso # (Auto) 0.0 WBC Differential . Differential Comment Auto diff final Sodium 144 Potassium 4.2 Chloride 108 H Carbon Dioxide 30.5 Anion Gap 6 BUN 23 H Creatinine 1.35 H Estimated GFR 50 L Random Glucose 98 Lactic Acid Calcium 7.4 L* Prot Corrected Calcium 8.1 L Total Bilirubin 0.4 AST 10 L ALT 10 L Alkaline Phosphatase 48 C-Reactive Protein 15.40 H Total Protein 5.8 L D Albumin 2.4 L D Urine Color Nazia Urine Clarity Cloudy H Urine pH 5.0 Ur Specific [place] 1.019 Urine Protein 100 H Urine Glucose (UA) Negative Urine Ketones Trace H Urine Occult Blood Large H Urine Nitrate Negative Urine Bilirubin Negative Urine Urobilinogen Less than 2 Ur Leukocyte Esterase Large H Urine RBC Urine WBC Urine WBC Clumps Moderate H Ur Squamous Epith Cells 1 Amorphous Sediment Occasional H Urine Bacteria Moderate H Hyaline Casts 18 Urine Mucus Many H Micro UA Comment Cath-culture ind Ur Microscopic Review Not Reportable Urine Culture Comments Cath-cult indicated - Imaging Impressions Chest X-Ray 11/27/17 10:17 CONCLUSION: No acute pulmonary infiltrates. No significant changes compared to the prior study. Assessment and Plan - Assessment (1) Sepsis Code(s): A41.9 - Sepsis, unspecified organism Status: Acute (2) Urinary tract infection associated with indwelling urethral catheter Code(s): T83.511A - Infection and inflammatory reaction due to indwelling urethral catheter, initial encounter; N39.0 - Urinary tract infection, site not specified Status: Acute (3) Eufht-vl-lbvpmfq kidney injury Code(s): N17.9 - Acute kidney failure, unspecified; N18.9 - Chronic kidney disease, unspecified Status: Acute (4) COPD (chronic obstructive pulmonary disease) Code(s): J44.9 - Chronic obstructive pulmonary disease, unspecified Status: Chronic (5) Hypertension Code(s): I10 - Essential (primary) hypertension Status: Chronic (6) Rheumatoid arthritis Code(s): M06.9 - Rheumatoid arthritis, unspecified Status: Chronic - Plan This is an 87-year-old CM with PMHx of COPD, HTN, AFib, and RA who presented to the ED due to lethargy and confusion. Patient is s/p removal of penile prosthesis removal yesterday by Dr. Axel Apple with [facility]. The patient was discharged home in stable condition however this AM had sudden onset of AMS and lethargy. Patient admitted for IP mgmt of UTI on Ceftriaxone, Leukocytosis, and BLAKE, HD#1 1. UTI UA with moderate WBC, Large LE, neg nitrites Pending urine Cx Cont. Ceftriaxone 1gm IV Q24hrs, started on 11/26 2. Leukocytosis Bld Cx on 11/26 pending CXR Neg Will F/U CBC in AM 3. Acute on Chronic Renal Insufficiency- improving. Creatinine 1.74 on admission, BUN 27 Baseline Creatinine 1.1 in 2017 per EMR review Cont. IVF; however will decrease the rate. Avoid nephrotoxic drugs 4. Hypernatremia- improved. On S for BLAKE Will cont. to monitor 5. COPD will taper off the oxygen. Cont. home Symbicort BID, Ipratropium QID, and Albuterol PRN 6. HTN Stable Cont. home Metoprolol, Amlodipine, and Enalapril 7. RA Cont. home Prednisone, holding MTX due to [place] 8. Hx of AFib Normal SR on exam Unsure why patient is not on ASA or other anticoagulant Chads2 score: 2 9. DVT PPX: SCD's Discharge Planning: possible discharge tomorrow if stable.
[2017-11-28] MEDS ORDERED: Sodium Chloride 0.9% 2 ML Flush PRN IV.FLUSH (09:04)
[2017-11-28] MEDS: Budesonide-Formoterol 160/4.5 MCG 6 GM Inhaler INH SCH ×2 (09:08→21:22)
[2017-11-28] MEDS: Sodium Chloride 0.9% 2 ML Flush BID IV.FLUSH SCH (21:25)
[2017-11-29] MEDS: Sodium Chloride 0.45 % Inj 1,000 ML IV.CONT SCH ×2 (02:51→09:51)
[2017-11-29 07:54] LABS: Baso % (Auto) 0.1 % (0.0-2.0); Eos % (Auto) 0.3 % (0.0-4.0); Hematocrit 36.5 % (39.0-51.0); Hemoglobin 11.9 gm/dL (13.0-17.0); Lymph # (Auto) 1.3 th/mm3 (1.0-4.8); Lymph % (Auto) 12.5 % (9.0-44.0); Mean Corpuscular HGB Conc 32.6 % (32.0-36.0); Mean Corpuscular Hemoglobin 32.3 pg (27.0-34.0); Mean Corpuscular Volume 99.2 fL (80.0-100.0); Mono # (Auto) 1.3 th/mm3 (0.0-0.9); Mono % (Auto) 11.7 % (0.0-8.0); Neut # (Auto) 8.1 th/mm3 (1.8-7.7); Neut % (Auto) 75.4 % (16.0-70.0); Platelet Count 160 th/mm3 (150-450); Red Blood Count 3.68 mil/mm3 (4.50-5.90); Red Cell Distribution Width 15.4 % (11.6-17.2); White Blood Count 10.7 th/mm3 (4.0-11.0)
[2017-11-29 08:26] LABS: Calcium 8.3 mg/dL (8.5-10.1); Carbon Dioxide 30.3 meq/L (21.0-32.0); Potassium 4.3 meq/L (3.5-5.1)
[2017-11-29] MEDS: Folic Acid 1 MG Tablet PO SCH (08:35)
[2017-11-29] MEDS: Senna/Docusate Sodium 8.6/50 MG Tablet PO SCH ×2 (08:35→20:16)
[2017-11-29] MEDS: predniSONE 5 MG Tablet PO SCH ×2 (08:35→20:17)
[2017-11-29] MEDS: Metoprolol Tartrate 25 MG Tablet PO SCH ×2 (08:35→20:16)
[2017-11-29] MEDS: amLODIPine 5 MG Tablet PO SCH (08:36)
[2017-11-29] MEDS: Sodium Chloride 0.9% 2 ML Flush BID IV.FLUSH SCH ×2 (08:38→20:16)
[2017-11-29] MEDS: Budesonide-Formoterol 160/4.5 MCG 6 GM Inhaler INH SCH ×2 (08:39→20:18)
--- NOTE | 2017-11-29 09:27 | P.PNIM ---
Subjective Interval history: f/u; UTI/ ARISTEO in no acute distress. denies pain. looks and feels much better today. no fever. daughter at the bedside. Physical Exam Vital signs: Vital Signs 11/28/17 11:50 11/28/17 12:00 11/28/17 14:46 Temperature 97.7 F Pulse Rate 71 61 96 H Respiratory Rate 18 17 15 Blood Pressure 121/59 L Pulse Oximetry 96 11/28/17 16:00 11/28/17 20:00 11/28/17 20:07 Temperature 98.0 F 97.5 F L Pulse Rate 69 80 77 Respiratory Rate 17 22 18 Blood Pressure 109/56 L 136/63 Pulse Oximetry 96 95 97 11/28/17 20:20 11/28/17 23:50 11/29/17 00:00 Temperature 97.4 F L Pulse Rate 74 67 72 Respiratory Rate 19 Blood Pressure 146/66 H Pulse Oximetry 98 11/29/17 04:00 11/29/17 08:00 Temperature 97.6 F 98 F Pulse Rate 68 73 Respiratory Rate 20 16 Blood Pressure 125/60 116/66 Pulse Oximetry 95 91 L Intake & Output 11/28/17 11/29/17 11/29/17 18:59 06:59 18:59 Intake Total 1250 / 1250 1120 / 1120 Output Total 1200 / 1200 900 / 900 Balance 50 / 50 220 / 220 Weight 91.2 kg Intake: IV 530 / 530 1000 / 1000 1/2 Normal Saline Inj 1,000 ML 430 / 430 1000 / 1000 @ 60 mls/hr IV.CONT .[id number] DANIEL Rx#:[id number] Rocephin Inj 1,000 MG In NS Inj 100 / 100 100 ML @ 200 mls/hr IV.SIG Q24H DANIEL Rx#:[id number] Oral 720 / 720 120 / 120 Output: Urine 1200 / 1200 900 / 900 Other: Date of Last Bowel Movement 11/28/17 # Bowel Movements 0 - Constitutional no acute distress - Routine Respiratory Exam Present: CTA bilaterally - Routine Cardiovascular Exam Present: RRR - Routine Abdominal Exam Present: soft - Routine Extremities Exam Comments: no pedal edema. - Routine Neurological Exam Present: alert, oriented X3 Results - Labs CBC & Chem 7: 11/29/17 06:55 11/29/17 06:55 Laboratory Results - last 24 hr 11/29/17 11/29/17 06:55 06:55 WBC 10.7 RBC 3.68 L Hgb 11.9 L Hct 36.5 L MCV 99.2 MCH 32.3 MCHC 32.6 RDW 15.4 Plt Count 160 MPV 9.0 Neut % (Auto) 75.4 H Lymph % (Auto) 12.5 [place] % (Auto) 11.7 H Eos % (Auto) 0.3 Baso % (Auto) 0.1 Neut # (Auto) 8.1 H Lymph # (Auto) 1.3 [place] # (Auto) 1.3 H Eos # (Auto) 0.0 Baso # (Auto) 0.0 WBC Differential . Differential Comment Auto diff final Sodium 144 Potassium 4.3 Chloride 109 H Carbon Dioxide 30.3 Anion Gap 5 BUN 16 Creatinine 1.06 Estimated GFR 66 L Random Glucose 105 Calcium 8.3 L D Microbiology 11/27/17 10:46 Catheterized Urine Urine Culture - Final No growth in 48 hours 11/27/17 10:46 Blood - Peripheral Aerobic Blood Culture - Preliminary No growth in 1 day 11/27/17 10:46 Blood - Peripheral Anaerobic Blood Culture - Preliminary No growth in 1 day 11/27/17 10:46 Blood - Peripheral Aerobic Blood Culture - Preliminary No growth in 1 day 11/27/17 10:46 Blood - Peripheral Anaerobic Blood Culture - Preliminary No growth in 1 day Assessment and Plan - Assessment (1) Sepsis Code(s): A41.9 - Sepsis, unspecified organism Status: Acute (2) Urinary tract infection associated with indwelling urethral catheter Code(s): T83.511A - Infection and inflammatory reaction due to indwelling urethral catheter, initial encounter; N39.0 - Urinary tract infection, site not specified Status: Acute (3) Kmadi-wz-dkkdldt kidney injury Code(s): N17.9 - Acute kidney failure, unspecified; N18.9 - Chronic kidney disease, unspecified Status: Acute (4) COPD (chronic obstructive pulmonary disease) Code(s): J44.9 - Chronic obstructive pulmonary disease, unspecified Status: Chronic (5) Hypertension Code(s): I10 - Essential (primary) hypertension Status: Chronic (6) Rheumatoid arthritis Code(s): M06.9 - Rheumatoid arthritis, unspecified Status: Chronic - Plan This is an 87-year-old CM with PMHx of COPD, HTN, AFib, and RA who presented to the ED due to lethargy and confusion. Patient is s/p removal of penile prosthesis removal yesterday by Dr. Axel Apple with [facility]. The patient was discharged home in stable condition however this AM had sudden onset of AMS and lethargy. Patient admitted for IP mgmt of UTI on Ceftriaxone, Leukocytosis, and BLAKE, HD#1 1. UTI UA with moderate WBC, Large LE, neg nitrites UC negative. dc IV antibiotics. 2. Leukocytosis-resolved. Bld Cx on 11/26 negative CXR Neg 3. Acute on Chronic Renal Insufficiency- improving. Creatinine 1.74 on admission, BUN 27 Baseline Creatinine 1.1 in 2017 per EMR review stop IVF Avoid nephrotoxic drugs 4. Hypernatremia- improved. 5. COPD with no exacerbation. will taper off the oxygen. Cont. home Symbicort BID, Ipratropium QID, and Albuterol PRN 6. HTN Stable Cont. home Metoprolol, Amlodipine, and Enalapril 7. RA Cont. home meds. 8. Hx of AFib Normal SR on exam no on aspirin or anticoagulation; patient reports on and off hematuria. Chads2 score: 2 f/u with as outpatient. 9. DVT PPX: SCD's Discharge Planning: dc to SNF within the next 24 hrs. f/u with pcp and urology ( d/w 's office; appointment was given on dec @ 10:45am and this was d/w the patient and his daughter. see med list.
--- NOTE | 2017-11-29 09:28 | P.DS ---
Date of admission: 11/27/17 12:27 Primary care physician: Ayah Ahn MD Brief History from admission: This is an 87-year-old CM with PMHx of COPD, HTN, AFib, and RA who presented to the ED due to lethargy and confusion. While in the ED, the patient's daughter and mentioned that the patient had his penile prosthesis removal yesterday by Dr. Axel Apple with [facility]. The patient was discharged home yesterday and was a little unsteady in his gait but was alert. Patient this AM woke up with confusion and did not know where he was. Patient was able to respond to questions when asked but was lethargic. denies recent illness, fever, chills, N/V/D. Upon my evaluation patient was alone however I spoke to the ED physician as well as the patient for further information. At baseline patient is alert and is able to complete ADL's independently. Patient was admitted with a zapata that was already in place. DS: Diagnosis - Discharge Diagnosis (1) Sepsis Status: Acute (2) Urinary tract infection associated with indwelling urethral catheter Status: Acute (3) [id number] kidney injury Status: Acute (4) COPD (chronic obstructive pulmonary disease) Status: Chronic (5) Hypertension Status: Chronic (6) Rheumatoid arthritis Status: Chronic DS: Summary Hospital Course: 1. UTI UA with moderate WBC, Large LE, neg nitrites UC negative. dc IV antibiotics. 2. Leukocytosis-resolved. Bld Cx on 11/26 negative CXR Neg 3. Acute on Chronic Renal Insufficiency- improving. Creatinine 1.74 on admission, BUN 27 Baseline Creatinine 1.1 in 2017 per EMR review stop IVF Avoid nephrotoxic drugs 4. Hypernatremia- improved. 5. COPD with no exacerbation. will taper off the oxygen. Cont. home Symbicort BID, Ipratropium QID, and Albuterol PRN 6. HTN Stable Cont. home Metoprolol, Amlodipine, and Enalapril 7. RA Cont. home meds. 8. Hx of AFib Normal SR on exam no on aspirin or anticoagulation; patient reports on and off hematuria. Chads2 score: 2 f/u with as outpatient. - Time Spent with Patient Total time spent providing and/or coordinating discharge services: Less than 30 minutes - Quality: VTE Deep Vein Thrombosis/Pulmonary Embolism Present on Admission: No Exam Vital signs: Vital Signs 11/28/17 11:50 11/28/17 12:00 11/28/17 14:46 Temperature 97.7 F Pulse Rate 71 61 96 H Respiratory Rate 18 17 15 Blood Pressure 121/59 L Pulse Oximetry 96 11/28/17 16:00 11/28/17 20:00 11/28/17 20:07 Temperature 98.0 F 97.5 F L Pulse Rate 69 80 77 Respiratory Rate 17 22 18 Blood Pressure 109/56 L 136/63 Pulse Oximetry 96 95 97 11/28/17 20:20 11/28/17 23:50 11/29/17 00:00 Temperature 97.4 F L Pulse Rate 74 67 72 Respiratory Rate 19 Blood Pressure 146/66 H Pulse Oximetry 98 11/29/17 04:00 11/29/17 08:00 Temperature 97.6 F 98 F Pulse Rate 68 73 Respiratory Rate 20 16 Blood Pressure 125/60 116/66 Pulse Oximetry 95 91 L Intake & Output 11/28/17 11/29/17 11/29/17 18:59 06:59 18:59 Intake Total 1250 / 1250 1120 / 1120 Output Total 1200 / 1200 900 / 900 Balance 50 / 50 220 / 220 Weight 91.2 kg Intake: IV 530 / 530 1000 / 1000 1/2 Normal Saline Inj 1,000 ML 430 / 430 1000 / 1000 @ 60 mls/hr IV.CONT .[id number] [facility] Rx#:[id number] Rocephin Inj 1,000 MG In NS Inj 100 / 100 100 ML @ 200 mls/hr IV.SIG Q24H [facility] Rx#:[id number] Oral 720 / 720 120 / 120 Output: Urine 1200 / 1200 900 / 900 Other: Date of Last Bowel Movement 11/28/17 # Bowel Movements 0 - Constitutional no acute distress - Routine Respiratory Exam Present: CTA bilaterally - Routine Cardiovascular Exam Present: RRR - Routine Abdominal Exam Present: soft - Routine Extremities Exam Comments: no pedal edema. - Routine Neurological Exam Present: alert, oriented X3 Results Procedures completed during hospitalization: none Labs on day of discharge: Labs from last 24 hours 11/29/17 11/29/17 06:55 06:55 WBC 10.7 RBC 3.68 L Hgb 11.9 L Hct 36.5 L MCV 99.2 MCH 32.3 MCHC 32.6 RDW 15.4 Plt Count 160 MPV 9.0 Neut % (Auto) 75.4 H Lymph % (Auto) 12.5 [place] % (Auto) 11.7 H Eos % (Auto) 0.3 Baso % (Auto) 0.1 Neut # (Auto) 8.1 H Lymph # (Auto) 1.3 [place] # (Auto) 1.3 H Eos # (Auto) 0.0 Baso # (Auto) 0.0 WBC Differential . Differential Comment Auto diff final Sodium 144 Potassium 4.3 Chloride 109 H Carbon Dioxide 30.3 Anion Gap 5 BUN 16 Creatinine 1.06 Estimated GFR 66 L Random Glucose 105 Calcium 8.3 L D Preliminary micro results at discharge 11/27/17 10:46 Aerobic Blood Culture - Preliminary Blood - Peripheral No growth in 1 day Anaerobic Blood Culture - Preliminary No growth in 1 day 11/27/17 10:46 Aerobic Blood Culture - Preliminary Blood - Peripheral No growth in 1 day Anaerobic Blood Culture - Preliminary No growth in 1 day - Impressions ITS Impressions Chest X-Ray 11/27/17 10:17 CONCLUSION: No acute pulmonary infiltrates. No significant changes compared to the prior study. Discharge Plan - Discharge Disposition Patient Disposition: Discharge to SNF - Discharge Condition Condition: Fair - Physicians Team Primary Care Provider: Ayah Ahn Attending Provider: Joes Diez Other Providers: [employer] ; [facility],Agency ; [facility], Agency ; [facility],Agency
[2017-11-29] MEDS: dilTIAZem 30 MG Tablet PO SCH ×3 (12:05→20:16)
[2017-11-29] MEDS: dilTIAZem Inj 125 MG in Sodium Chlor 0.9% Inj 100 ML IV.CONT PRN (15:15)
[2017-11-30] MEDS: dilTIAZem Inj 125 MG in Sodium Chlor 0.9% Inj 100 ML IV.CONT PRN (04:03)
[2017-11-30] MEDS: Folic Acid 1 MG Tablet PO SCH (08:02)
[2017-11-30] MEDS: predniSONE 5 MG Tablet PO SCH (08:02)
[2017-11-30] MEDS: Senna/Docusate Sodium 8.6/50 MG Tablet PO SCH (08:02)
[2017-11-30] MEDS: dilTIAZem 30 MG Tablet PO SCH ×3 (08:02→17:04)
[2017-11-30] MEDS: Budesonide-Formoterol 160/4.5 MCG 6 GM Inhaler INH SCH (08:02)
[2017-11-30] MEDS: Sodium Chloride 0.9% 2 ML Flush BID IV.FLUSH SCH (08:03)
[2017-11-30] MEDS: Metoprolol Tartrate 25 MG Tablet PO SCH (08:11)
--- NOTE | 2017-11-30 11:10 | P.PNIM ---
Subjective Interval history: f/u; UTI/ a-fib in no acute distress. off the cardizem drip since this morning and HR stable. no chest pain or sob. afebrile. family at the bedside. d/w the RN and no acute issues over night. Physical Exam Vital signs: Vital Signs 11/29/17 11:20 11/29/17 12:00 11/29/17 12:30 Temperature 97.3 F L Pulse Rate 151 H 113 H 119 H Respiratory Rate 16 Blood Pressure 102/73 Pulse Oximetry 91 L 11/29/17 16:00 11/29/17 20:00 11/30/17 00:00 Temperature 97.5 F L 97.4 F L 97.8 F Pulse Rate 109 H 75 73 Respiratory Rate 16 18 18 Blood Pressure 108/63 133/74 129/62 Pulse Oximetry 92 L 98 98 11/30/17 04:00 11/30/17 08:00 Temperature 97.3 F L 97.5 F L Pulse Rate 60 59 L Respiratory Rate 16 20 Blood Pressure 133/74 136/64 Pulse Oximetry 98 100 Intake & Output 11/29/17 11/30/17 11/30/17 18:59 06:59 18:59 Intake Total 1460 / 1460 125 / 125 Output Total 1500 / 1500 1000 / 1000 Balance -40 / -40 -875 / -875 Weight 91.6 kg Intake: IV 500 / 500 125 / 125 Cardizem Inj 125 MG In NS Inj 125 / 125 100 ML @ 5 MG/HR 5 mls/hr IV. CONT [facility] Rx#:[id number] Rocephin Inj 1,000 MG In NS Inj 100 / 100 100 ML @ 200 mls/hr IV.SIG Q24H [facility] Rx#:[id number] Oral 960 / 960 Output: Urine 1500 / 1500 Urine Amount (Catheter) 1000 / 1000 Indwelling Urethral Catheter 1000 / 1000 Other: Date of Last Bowel Movement 11/28/17 11/28/17 # Bowel Movements 0 - Constitutional no acute distress - Routine Respiratory Exam Present: CTA bilaterally, wheezes (mild bilateral wheezing.) - Routine Cardiovascular Exam Present: irregularly irregular - Routine Abdominal Exam Present: soft - Routine Extremities Exam Comments: no pedal edema. - Routine Neurological Exam Present: alert, oriented X3 - Urinary Catheter Management Indwelling Urethral Catheter Cath placed during this visit: no Reason for continuing: Other continuation reason Results - Labs CBC & Chem 7: 11/29/17 06:55 11/29/17 06:55 Microbiology 11/27/17 10:46 Blood - Peripheral Aerobic Blood Culture - Preliminary No growth in 3 days 11/27/17 10:46 Blood - Peripheral Anaerobic Blood Culture - Preliminary No growth in 3 days 11/27/17 10:46 Blood - Peripheral Aerobic Blood Culture - Preliminary No growth in 3 days 11/27/17 10:46 Blood - Peripheral Anaerobic Blood Culture - Preliminary No growth in 3 days 11/27/17 10:46 Catheterized Urine Urine Culture - Final No growth in 48 hours - Procedures none Assessment and Plan - Assessment (1) Sepsis Code(s): A41.9 - Sepsis, unspecified organism Status: Acute (2) Urinary tract infection associated with indwelling urethral catheter Code(s): T83.511A - Infection and inflammatory reaction due to indwelling urethral catheter, initial encounter; N39.0 - Urinary tract infection, site not specified Status: Acute (3) Bqnrq-[id number] kidney injury Code(s): N17.9 - Acute kidney failure, unspecified; N18.9 - Chronic kidney disease, unspecified Status: Acute (4) COPD (chronic obstructive pulmonary disease) Code(s): J44.9 - Chronic obstructive pulmonary disease, unspecified Status: Chronic (5) Hypertension Code(s): I10 - Essential (primary) hypertension Status: Chronic (6) Rheumatoid arthritis Code(s): M06.9 - Rheumatoid arthritis, unspecified Status: Chronic - Plan This is an 87-year-old CM with PMHx of COPD, HTN, AFib, and RA who presented to the ED due to lethargy and confusion. Patient is s/p removal of penile prosthesis removal yesterday by Dr. Axel Apple with [facility]. The patient was discharged home in stable condition however this AM had sudden onset of AMS and lethargy. Patient admitted for IP mgmt of UTI on Ceftriaxone, Leukocytosis, and BLAKE, HD#1 1. UTI- s/p recent urological intervention UA with moderate WBC, Large LE, neg nitrites UC negative. received antibiotics. previously d/w 's office; dressing was removed per urology recommendations. 2. Leukocytosis-resolved. Bld Cx on 11/26 negative CXR Neg 3. Acute on Chronic Renal Insufficiency- improving. Creatinine 1.74 on admission, BUN 27 Baseline Creatinine 1.1 in 2017 per EMR review stopped IVF Avoid nephrotoxic drugs 4. Hypernatremia- improved. 5. COPD with no exacerbation. will taper off the oxygen. Cont. home Symbicort BID, Ipratropium QID, and Albuterol PRN 6. HTN Stable Cont. home Metoprolol, Amlodipine, and Enalapril 7. RA Cont. home meds. 8. AFib with RVR off Cardizem drip since this morning and HR now stable. no on aspirin or anticoagulation; patient reports on and off hematuria. Chads2 score: 2 f/u with as outpatient. 9. DVT PPX: SCD's Discharge Planning: dc to SNF this evening if HR stable. f/u with pcp and urology ( d/w 's office; appointment was given on dec @ 10:45am and this was d/w the patient and his daughter. see med list. d/w the patient, family and case management.
[2017-11-30 12:14] VITALS: RESP 18
[2017-11-30 18:14] VITALS: BP 117/60; PULSE 64; TEMP 97.1; O2SAT 93
== END 2017-11-30 18:54 ==
LOC: NEPC 09:50 → NEDA 09:50 → N04 17:34
PROVIDERS: ADMIT Internal Medicine; ATTEND Internal Medicine